=== PATIENT | male | born 1950 | race Caucasian/White ===

== ENCOUNTER 2019-09-24 16:37 | Inpatient (IN) | payer OTHER, SELFPAY ==
[2019-09-24] VITALS (9 sets, daily range): BP systolic 178–196; BP diastolic 70–85; PULSE 64–94; RESP 18–24; TEMP 36.6–37.2; O2SAT 97–100; BMI 45.0
--- NOTE | ~2019-09-24 | US_ITS ---
EXAMINATION: US venous doppler [facility] DATE: 09/25/2019 07:50 INDICATION: Lower limb edema. TECHNIQUE: Grayscale ultrasound images without and with compression and Doppler ultrasound images of the bilateral lower extremity veins were obtained. COMPARISON: Ultrasound 12/31/2017 FINDINGS: The visualized portions of right common femoral vein, profunda (deep) femoral vein, femoral vein, pop liteal vein, peroneal veins, posterior tibial veins, and greater saphenous vein outflow are patent. The visualized portions of left common femoral vein, profunda femoral vein, femoral vein, popliteal v ein, peroneal veins, posterior tibial veins, and greater saphenous vein outflow are patent. IMPRESSION: 1. No deep venous thrombosis. Reviewed, dictated and finalized at location A.
--- NOTE | ~2019-09-24 | XR_ITS ---
XR chest 1V portable 09/24/2019 17:05 Indication: Shortness of breath Procedure: AP portable chest Comparison: No prior studies for comparison. Findings: Cardiomegaly. Low lung volumes. Mild interstitial edema. No pleural effusion or pneumothora x. Elevated right diaphragm. There are degenerative changes left glenohumeral joint. Impression: 1: Cardiomegaly with mild interstitial edema. Reviewed, dictated and finalized at location A. Impression: 1: Cardiomegaly with mild interstitial edema.
--- NOTE | 2019-09-24 16:38 | ECG_ITS ---
Measurements Intervals [place] Rate: 66 P: 61 NM: 159 QRS: 4 QRSD: 117 T: 62 QT: 414 QTc: 434 Interpretive Statements SINUS RHYTHM LOW QRS VOLTAGE IN PRECORDIAL LEADS INTRAVENTRICULAR CONDUCTION DELAY BORDERLINE R WAVE PROGRESSION, ANTERIOR LEADS BASELINE ARTIFACT- V1 BORDERLINE ECG Electronically Signed On 09-25-2019 7:07:04 CDT by William Ross D.O.
--- NOTE | 2019-09-24 17:19 | ED.GENADULT ---
HPI - General Adult General Chief complaint: Shortness of Breath/Dyspnea Stated complaint: sob Time Seen by Provider: 09/24/19 16:49 Source: patient Mode of arrival: ambulatory Limitations: no limitations History of Present Illness HPI narrative: 69 m h/o severe copd reports for the last six months he has needed 3L o2 relatively continuously, prior to that wore only around the house has not had any medical f/u during that time for a variety of reasons, recently had been staying with family in [facility] h/o icthyosis and was coming to the ed today to be checked due to 2 weeks of increased pain and drainage that he has been trying to take care of by himself at home went to pcp office but they weren't there walking in from [employer] car w/o o2 he was sob but feels essentially like his recent baseline now Related Data Home Medications Medication Instructions Recorded Confirmed albuterol sulfate 90 mcg/actuation 1 inhalation INHALATION Q4H 06/23/19 aerosol inhaler fluticasone 250 mcg-salmeterol 50 1 inhalation INHALATION BID 06/23/19 mcg/dose blistr powdr for inhalation furosemide 20 mg tablet 20 mg PO QAM 06/23/19 hydrochlorothiazide 25 mg tablet 25 mg PO DAILY 06/23/19 metoprolol succinate 50 mg 50 mg PO BID 06/23/19 tablet,extended release 24 hr simvastatin 10 mg tablet 10 mg PO DAILY 06/23/19 Allergies Allergy/AdvReac Type Severity Reaction Status Date / Time No Known Allergies Allergy Verified 09/24/19 17:04 Review of Systems Constitutional: Constitutional: Denies chills, Denies fatigue, Denies fever(s) and Denies weakness Cardiovascular: Cardiovascular: Denies chest pain Respiratory: Respiratory: Denies chest congestion, Denies cough, Reports dyspnea and Denies wheezing Gastrointestinal: Gastrointestinal: Denies diarrhea and Denies vomiting Musculoskeletal: Comments: b edema, draining superficial sores/erosions lle Integumentary/Breasts: Skin/Breast: Reports erythema and Reports rash PMFSH Social History Social History Smoking status: Heavy tobacco smoker Alcohol intake: never Gender identity (if verbalized by the patient): Male Exam Const: General: no acute distress and alert Nutritional Appearance: obese Orientation/consciousness: patient oriented x3 Limitations: no limitations HENMT: Head: normocephalic and atraumatic Ears: external ears normal General nose exam: No nasal discharge present and Epistaxis present Face and sinus: face symmetric Mouth: Yes lip normal, Yes tongue normal and Yes moist mucous membranes Throat: other (No exudate, no erythema) Eyes: Conjunctivae: conjunctivae normal Sclera: sclerae normal EOM: EOMs intact bilaterally Neck: Neck: full ROM, no lymphadenopathy and supple Thyroid: thyroid normal Chest: Chest palpation & inspection: no tenderness Resp: Effort & Inspection: normal respiratory effort Auscultation: clear to auscultation bilaterally, no rales, no rhonchi, no wheezes, diminished lung sounds and other (breath sounds equal) Cardio: Rate: regular rate Rhythm: regular rhythm Heart sounds: no gallops and no murmurs GI: Inspection: non-distended GI Palp: No abdominal tenderness and Yes Soft to palpation Auscultation: other (bowel sounds present) Back/Spine/Pelvis: Back: no CVA tenderness Thoracic/Lumbar Spine: thoracic and lumbar spine normal to inspection Skin: General skin exam: normal color and no rashes or lesions noted Other: dry/icthyosis superficial ulceration/oozing above L ankle Neuro: General: patient oriented x3 (alert), moves all extremities and no focal motor deficits Cranial nerves: Yes facial symmetry Speech: normal speech Motor exam (neuro): Motor abnormalities not present Extrem: General: full ROM and edema Psych: Affect: normal affect Course Course Emergency Course: maint on low flows of 02 to avoid retention and recd neb, steroid
[2019-09-24 17:20] LABS: Basophils Absolute Auto 0.1 K/mm3 (0.0-0.1); Basophils Percent Auto 0.7 % (0.2-1.2); Eosinophils Absolute Auto 0.1 K/mm3 (0-0.3); Eosinophils Percent Auto 1.2 % (0-4.4); Hematocrit 38.2 % (42.0-52.0); Hemoglobin 11.6 g/dL (14.0-18.0); Immature Granulocyte Absolute 0.05 K/mm3 (0.00-0.031); Immature Granulocyte Percent A 0.6 % (0-0.5); Lymphocytes Absolute Auto 2.23 K/mm3 (0.9-3.2); Lymphocytes Percent Auto 25.1 % (18.3-44.2); Mean Corpuscular HGB Conc 30.4 g/dl (32-36); Mean Corpuscular Hemoglobin 28.3 pg (26-34); Mean Corpuscular Volume 93.2 fl (80-100); Mean Platelet Volume 10.2 fl (7.4-10.4); Monocytes Absolute Auto 0.8 K/mm3 (0.1-0.6); Monocytes Percent Auto 9.3 % (2.6-8.5); Neutrophils Absolute Auto 5.6 K/mm3 (1.3-6.7); Neutrophils Percent Auto 63.1 % (45.5-73.1); Platelet Count Result 162 k/mm3 (150-375); Red Cell Distribution Width 12.8 % (11.5-14.5); White Blood Count 8.9 K/mm3 (4.5-10.0)
[2019-09-24 17:34] LABS: Blood Urea Nitrogen 14 mg/dL (9-20); Calcium 8.7 mg/dL (8.4-10.2); Carbon Dioxide > 40 mmol/L (22-30); Chloride 92 mmol/L (98-107); Estimated CRCL calculation 107 ml/min; Estimated Glomerular Filt Rate > 60; Glucose 121 mg/dL (75-110); Potassium 3.6 mmol/L (3.4-5.0); Sodium 139 mmol/L (137-145)
[2019-09-24 17:38] LABS: Alveolar/Arterial O2 Gradient 35.3 mmHg; Base Excess ABG 11.7 mEq/l (+/-2.0); Fractional Inspired Oxygen 32 %; HCO3 ABG 40.3 mEq/l (22.0-26.0); Oxygen Content ABG 16.8 %vol (16.0-22.0); Oxygen Saturation ABG 97.3 % (95.0-100.0); Oxyhemoglobin 96.1 % THb (90.0-100.0); PO2 FiO2 Ratio Arterial Blood 3.28 %; Total Hemoglobin 12.3 g/dL (12.0-18.0); pH ABG 7.347 (7.350-7.450)
[2019-09-24 17:39] LABS: Device NASAL CANNULA; Modified Allen's Test Pass; PCO2 ABG 75.1 mmHg (35.0-45.0); Site Drawn LEFT RADIAL
[2019-09-24] MEDS: ceFAZolin 2 GM/D5W 50 ML 2 GM/50 ML BAG IVPB (19:01)
[2019-09-24] MEDS: IPRATROPIUM BR 0.02% INH SOLN 0.5 MG/2.5 ML VIAL INHALATION (19:26)
[2019-09-24] MEDS: ALBUTEROL SULFATE NEB 2.5 MG/0.5 ML INH 5 MG INHALATION (19:26)
--- NOTE | 2019-09-24 19:43 | PCRCNOTE ---
Window of time for administration has passed. See next scheduled administration.
--- NOTE | 2019-09-24 19:57 | ADMGEN ---
This patient, Chetan Lazaro, was admitted to Medical Room 250-01. Patient/family oriented to hospital policies and general routines including ID bracelet, bed and alarms, visiting hours, pain management, procedures, bathroom and other care routines, personal items, smoking policy, room service/diet, and visiting hours. Valuables list has been completed. Information on how to activate the Rapid Response Team has been discussed. Patient/Family are encouraged to report perceived risks to care and to ask questions if they do not understand what they are told or what they should do.
[2019-09-24 22:22] LABS: Alveolar/Arterial O2 Gradient 53.4 mmHg; Base Excess ABG 8.7 mEq/l (+/-2.0); Fractional Inspired Oxygen 32 %; HCO3 ABG 35.6 mEq/l (22.0-26.0); Oxygen Content ABG 15.2 %vol (16.0-22.0); Oxygen Saturation ABG 97.4 % (95.0-100.0); Oxyhemoglobin 96.2 % THb (90.0-100.0); PO2 ABG 102.7 mmHg (80.0-100.0); PO2 FiO2 Ratio Arterial Blood 3.21 %; Total Hemoglobin 11.1 g/dL (12.0-18.0)
[2019-09-24 22:23] LABS: PCO2 ABG 61.6 mmHg (35.0-45.0)
[2019-09-24 22:24] LABS: Device NASAL CANNULA; Modified Allen's Test Pass; Site Drawn LEFT RADIAL
[2019-09-24] MEDS: FAMOTIDINE 20 MG/2 ML VIAL IV PUSH (23:02)
[2019-09-25] VITALS (10 sets, daily range): BP systolic 162–190; BP diastolic 58–72; PULSE 59–81; RESP 18–20; TEMP 36.3–36.6; O2SAT 96–100
--- NOTE | 2019-09-25 | ECHO_ITS ---
Patient Info Name: Chetan Lazaro Age: 69 years : 1950 Gender: Male Ht: 69 in Wt: 305 lbs BSA: 2.67 m2 HR: 75 bpm BP: 179 / 72 mmHg Heart Rhythm: Sinus Rhythm Technical Quality: Poor Exam Date: 09/25/2019 11:19 AM Exam Location: [facility] Patient Status: Inpatient Admit Date: 09/24/2019 Staff Ordering Physician: Chelsea Ovalle NP [place] Technician: Pantera Waller RDCS Attending Provider: Batool Guy PA-C Referring Physician: Yamile JAMES; Exam Type: CA echo doppler color flow Study Info Indications R60.9 - Edema, unspecified Complete two-dimensional, color flow and Doppler transthoracic echocardiogram is performed. Reason for Poor Study: poor echocardiographic windows History/Risk Factors Edema; COPD, CAD w/ 1 stent. Summary 1. Technically suboptimal study due to poor sonographic images. Cannot assess for regional wall motion abnormality. 2. Left ventricular chamber dimension is normal. 3. Left ventricular systolic function is normal, estimated at 55-60%. 4. There is moderately increased left ventricular wall thickness. 5. The left ventricular diastolic function is abnormal. 6. E/e' 12 is mildly elevated. 7. Left atrial chamber dimension is mildly enlarged. 8. The aortic valve is not well visualized. 9. The mitral valve has not well visualized. Left Ventricle Technically suboptimal study due to poor sonographic images. Cannot assess for regional wall motion abnormality. E/e' 12 is mildly elevated. Left ventricular chamber dimension is normal. Left ventricular systolic function is normal, estimated at 55-60%. There is moderately increased left ventricular wall thickness. The left ventricular diastolic function is abnormal. Right Ventricle Right ventricular chamber dimension is not well visualized. Left Atria Left atrial chamber dimension is mildly enlarged. Right Atria Right atrial chamber dimension is not well visualized. Aortic Valve The aortic valve is not well visualized. There is no aortic valve stenosis. There is no aortic valve regurgitation. Pulmonic Valve The pulmonic valve is not well visualized. Mitral Valve The mitral valve has not well visualized. There is no mitral valve stenosis. There is no mitral valve regurgitation. Tricuspid Valve The tricuspid valve leaflets are not well visualized. There is no tricuspid valve regurgitation. Pericardium/Pleural There is no pericardial effusion. Inferior Vena Cava Normal inferior vena cava with >50% collapse upon inspiration consistent with normal right atrial pressure, 5 mmHg. Aorta The aortic root size at the sinus of Valsalva is not well visualized. Left Ventricular Outflow Tract Name Value Normal LVOT Doppler LVOT Peak Gradient 5 mmHg LVOT Mean Gradient 2 mmHg LVOT VTI 24 cm LVOT VTI/AV VTI Ratio 0.6 Mitral Valve Name Value Normal MV Doppler
[2019-09-25] MEDS: hydrALAZINE HCL 20 MG/ML VIAL 25 MG IV PUSH (00:14)
--- NOTE | 2019-09-25 00:35 | PM.IMHP ---
H&P: HPI History of Present Illness Chief complaint: Cellulitis/COPD Narrative: Chetan Lazaro is a 69 year old male who has a history of COPD. The patient typically wears oxygen p.r.n. and at night. The patient stated since the beginning of this year he has been wearing oxygen at 3 L per nasal cannula continuously. He denies having any congestive heart failure. Patient stated that he typically goes to the [facility] but has not been able to get back over there and months. He does not have a pulmonary doctor. He does uses inhalers at home. He cannot recall when he had his last echo. Patient has increased swelling to his lower extremities and has a history of ichthyosis. Patient has red peeling skin to bilateral lower extremities. He has serous drainage bilaterally. Patient was diagnosed by ED provider as cellulitis and started the patient on Ancef. Both legs are equally red and swollen. Patient complains of discomfort that is keeping him awake at night. He has not on any anticoagulation or dizzy a history of DVTs. Date of service is 09/25/2019 Review of Systems Review of Systems: All systems reviewed & are unremarkable except as noted in HPI and below Constitutional: Constitutional: Reports as per HPI and Reports no additional constitutional complaints Eyes: Eyes: Reports as per HPI and Reports no additional eye complaints ENT: Reports system reviewed and no additional complaints, except as documented and Reports Normal hearing present Cardiovascular: Cardiovascular: Reports no additional cardiovascular complaints Respiratory: Respiratory: Reports no additional respiratory complaints and Reports no additional respiratory complaints Gastrointestinal: Gastrointestinal: Reports as per HPI and Reports no additional gastrointestinal complaints Musculoskeletal: Musculoskeletal: Reports no additional musculoskeletal complaints Integumentary/Breasts: Skin/Breast: Reports system reviewed and no additional complaints, except as docu and Reports as per HPI Neurologic: Reports system reviewed and no additional complaints, except as documented, Reports as per HPI and Reports Normal hearing present Psychiatric: Psychiatric: Reports no additional psychiatric complaints and Reports as per HPI Endocrine: Endocrine: Reports no additional endocrine complaints Hematologic/Lymphatic: Hematologic/Lymphatic: Reports no additional hematologic/lymphatic complaints Allergic/Immunologic: Allergic/Immunologic: Reports no additional allergic/immunologic complaints [facility] Past Medical History Medical History (Updated 09/25/19 @ 00:51 by Chelsea Ovalle NP) BPH (benign prostatic hyperplasia) CAD (coronary artery disease) One cardiac stent Hyperlipidemia Ichthyosis Neuropathy Surgical History Surgical History (Updated 09/25/19 @ 00:51 by Chelsea Ovalle NP) H/O bilateral cataract extraction H/O heart artery stent X1 History of tonsillectomy Family History Family History (Updated 09/25/19 @ 00:53 by Chelsea Ovalle NP) Father Brain tumor Mother Dementia Sibling Measles Son Acute myocardial infarction Daughter Spina bifida Social History Social History (Updated 09/25/19 @ 00:55 by Chelsea Ovalle NP) Social History: The patient is and lives with his son most of the time. Patient had 3 children but his 1 son at the age of 21 of a DC in his daughter due to complications of spina bifida at the age of 24. The 1 remaining son is healthy and is the durable power estate planning attorney for healthcare. The patient is a full code. 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 Smoking status: Heavy tobacco smoker Alcohol intake: current Drinks per week: 1 Substance use: never Living arrangements: with family Gender identity (if verbalized by the patient): Male Spiritual care concerns: No Agree to blood products: Yes Meds Home Medications and Allergies Home Medications Medication
[2019-09-25] MEDS: ACETAMINOPHEN 325 MG TABLET 650 MG PO ×3 (03:08→18:33)
[2019-09-25 05:30] LABS: Basophils Percent Auto 0.2 % (0.2-1.2); Hematocrit 37.1 % (42.0-52.0); Hemoglobin 11.4 g/dL (14.0-18.0); Immature Granulocyte Absolute 0.05 K/mm3 (0.00-0.031); Immature Granulocyte Percent A 0.9 % (0-0.5); Lymphocytes Percent Auto 14.8 % (18.3-44.2); Mean Corpuscular HGB Conc 30.7 g/dl (32-36); Mean Corpuscular Hemoglobin 28.1 pg (26-34); Mean Corpuscular Volume 91.4 fl (80-100); Mean Platelet Volume 10.4 fl (7.4-10.4); Monocytes Absolute Auto 0.2 K/mm3 (0.1-0.6); Monocytes Percent Auto 2.8 % (2.6-8.5); Neutrophils Absolute Auto 4.4 K/mm3 (1.3-6.7); Neutrophils Percent Auto 81.3 % (45.5-73.1); Platelet Count Result 159 k/mm3 (150-375); Red Blood Count 4.06 M/mm3 (4.6-6.20); Red Cell Distribution Width 12.8 % (11.5-14.5); White Blood Count 5.4 K/mm3 (4.5-10.0)
--- NOTE | 2019-09-25 05:50 | PCRCNOTE ---
Window of time for administration has passed. See next scheduled administration.
[2019-09-25 05:51] LABS: Blood Urea Nitrogen 15 mg/dL (9-20); Calcium 8.5 mg/dL (8.4-10.2); Carbon Dioxide > 40 mmol/L (22-30); Chloride 93 mmol/L (98-107); Estimated CRCL calculation 133 ml/min; Estimated Glomerular Filt Rate > 60; Glucose 146 mg/dL (75-110); Potassium 4.2 mmol/L (3.4-5.0); Sodium 136 mmol/L (137-145)
[2019-09-25] MEDS: predniSONE 20 MG TABLET 60 MG PO (08:53)
[2019-09-25] MEDS: FAMOTIDINE 20 MG/2 ML VIAL IV PUSH ×2 (08:53→20:00)
[2019-09-25] MEDS: OLMESARTAN MEDOXOMIL 20 MG TABLET 40 MG PO (08:54)
[2019-09-25] MEDS: SIMVASTATIN 10 MG TABLET PO (08:54)
[2019-09-25] MEDS: METOPROLOL SUCCINATE EXT REL 50 MG TABCR PO ×2 (08:54→16:53)
[2019-09-25] MEDS: ALBUTEROL SULFATE (*SP) AEROSOL 1 PUFF INHALATION (09:16)
[2019-09-25] MEDS: SILVERGEL (ELTA) 45 ML 1 APPLIC TOPICAL (11:45)
[2019-09-25] MEDS: EUCERIN CREAM 120 GM JAR 1 APPLIC TOPICAL (11:45)
--- NOTE | 2019-09-25 14:47 | PM.IMPN ---
Progress Note: A&P Assessment and Plan (1) Lower extremity edema: Code(s): R60.0 - Localized edema Status: Chronic Assessment and Plan: Acute on chronic. He notes that his legs have been more swollen than normal over the last 2 weeks and he presented the the ER due to worsening pain in both legs. Discussed with wound RN. No infection suspected - ancef stopped. JACQUELINE legs below the knees are edematous, skin is dry and flaky with weeping and maceration. Poor compliance. Patient needs to be able to do his wound care at home and continue elevating his legs. Establish with podiatry. Venous dopplers show no DVT. IV Lasix 40 BID for now and anticipate discharge tomorrow. (2) COPD (chronic obstructive pulmonary disease): Qualifiers: COPD type: unspecified COPD Qualified Code(s): J44.9 - Chronic obstructive pulmonary disease, unspecified Code(s): J44.9 - Chronic obstructive pulmonary disease, unspecified Status: Chronic Assessment and Plan: Continue with inhalers and prednisone. No evidence of respiratory distress. Expiratory wheezing. Tolerating his home O2 requirement of 3L. (3) Hyperlipidemia: Qualifiers: Hyperlipidemia type: unspecified Qualified Code(s): E78.5 - Hyperlipidemia, unspecified Code(s): E78.5 - Hyperlipidemia, unspecified Status: Acute Assessment and Plan: Continue home statin therapy. 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 Continue wound care. (5) Chronic hypercapnic respiratory failure: Code(s): J96.12 - Chronic respiratory failure with hypercapnia Status: Acute Assessment and Plan: Chronic. Monitor for respiratory symptoms. Subjective Date/time seen: 09/25/19 1245 Interval history: Mr. Reddy is a 69yo M admitted for JACQUELINE lower extremity edema and pain. He notes his pain is a bit improved. He otherwise offers no complaints and denies chest pain, shortness of breath, or cough. He is tolerating oral intake without nausea or vomiting. Review of Systems Review of Systems: Narrative: Twelve systems were reviewed with pertinent positives and negatives as per HPI. Exam Narrative: Exam Narrative: General: Obese male sitting up in bedside chair in no acute distress. HEENT: Normocephalic, EOMI, oral mucosa moist. Cardiovascular: Rate and rhythm are regular. No notable murmur, rub, or gallop. Respiratory: Expiratory wheeze. Decreased breath sounds throughout. Tolerating his home requirement of 3L. Abdomen: Soft, protuberant, non-tender, non-distended, bowel sounds present. Extremities: Significant chronic skin and color change to bilateral lower extremities. Skin is dry and flaky. Toenails are thickened, yellow, and very overgrown. 2 to 3+ pedal edema up to knees. Neuro: No focal neurological deficits. Speech is clear. Objective Data Vital Signs Vital Signs: Last Vital Signs Temp 97.8 F 09/25/19 13:59 Pulse 80 09/25/19 16:53 Resp 18 09/25/19 13:59 BP 190/64 H 09/25/19 13:59 Pulse Ox 99 09/25/19 13:59 Intake/Output Intake/Output: Intake & Output 09/22/19 09/23/19 09/24/19 09/25/19 23:59 23:59 23:59 23:59 Intake Total 50 1020 Output Total 1175 Balance 50 -155 Meds/Results Medications: Active Medications Generic Name Dose Route Start Last Admin Trade Name Freq PRN Reason Stop Dose Admin Acetaminophen 650 mg 09/24/19 18:41 09/25/19 09:03 Tylenol Tablet PO 650 mg Q4H PRN Administration Mild Pain (1-3) or Fever Albuterol 1 puff 09/25/19 09:17 Proventil Hfa INHALATION Q4HRT PRN Shortness Of Odette
[2019-09-25] MEDS: FUROSEMIDE INJ 40 MG/4 ML VIAL IV PUSH (14:53)
[2019-09-26 05:38] LABS: Blood Urea Nitrogen 18 mg/dL (9-20); Calcium 8.6 mg/dL (8.4-10.2); Carbon Dioxide > 40 mmol/L (22-30); Chloride 91 mmol/L (98-107); Estimated CRCL calculation 102 ml/min; Estimated Glomerular Filt Rate > 60; Glucose 123 mg/dL (75-110); Potassium 4.5 mmol/L (3.4-5.0); Sodium 138 mmol/L (137-145)
[2019-09-26 06:00] VITALS: BP 148/75; PULSE 58; RESP 18; TEMP 36; O2SAT 99
[2019-09-26] MEDS: ACETAMINOPHEN 325 MG TABLET 650 MG PO (06:58)
[2019-09-26 08:10] VITALS: PULSE 51; RESP 20; O2SAT 98
[2019-09-26 09:08] VITALS: PULSE 69
[2019-09-26] MEDS: FAMOTIDINE 20 MG/2 ML VIAL IV PUSH (09:08)
[2019-09-26] MEDS: SIMVASTATIN 10 MG TABLET PO (09:08)
[2019-09-26] MEDS: FUROSEMIDE INJ 40 MG/4 ML VIAL IV PUSH (09:08)
[2019-09-26] MEDS: OLMESARTAN MEDOXOMIL 20 MG TABLET 40 MG PO (09:08)
[2019-09-26] MEDS: predniSONE 20 MG TABLET 60 MG PO (09:08)
[2019-09-26] MEDS: METOPROLOL SUCCINATE EXT REL 50 MG TABCR PO (09:08)
[2019-09-26] MEDS: SILVERGEL (ELTA) 45 ML 1 APPLIC TOPICAL (09:11)
[2019-09-26] MEDS: EUCERIN CREAM 120 GM JAR 1 APPLIC TOPICAL (09:11)
--- NOTE | 2019-09-26 09:51 | PM.DS ---
DS: Diagnosis Admitting Diagnosis Admitting Diagnosis: Lower extremity edema, bilaterally Discharge Diagnosis (1) Lower extremity edema: Code(s): R60.0 - Localized edema Status: Chronic Assessment and Plan: Date of Service 09/26/19 Mr. Lazaro is a 69yo M with history of COPD, chronic respiratory failure with hypoxia and hypercapnia requiring 3L home supplemental O2, hypertension and hyperlipidemia who presented to the ED for evaluation of increased pain and swelling of bilateral lower legs. 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 He presented with JACQUELINE lower extremity swelling, weeping, and maceration as well as very thickened, overgrown toenails that were digging into his skin on the plantar aspects of his toes. Wound care nurse was consulted and agreed that his condition was not consistent with infection, rather worsening of chronic changes. He was treated with 40mg IV Lasix x 2 doses and discharged with a low dose of oral Lasix. Prior to this, no diuretics were listed on his home medications. He is poorly compliant with wound care and does not like to keep his legs elevated as encouraged. Wound care and education on his wounds were provided. He notes that he is unable to bend down far enough to do his dressing changes daily, and he was advised to teach his son to help him do his wound care at home. The patient lives in [place], [place] but drives to this area for his care and sees Dr Bauman. He was educated on the importance of daily dressing changes, elevating his legs and using compression stockings. 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 He noted he was only taking his advair and albuterol as needed. We discussed using his advair daily as a maintenance inhaler and using albuterol as needed. He also noted he will take off his oxygen at home when he walks around, which makes him feel short of breath. He was instructed not to do that, and to keep his oxygen on at all times. He was discharged in stable condition 09/26/19 with instructions to repeat lab work in 1 week to check electrolytes having started Lasix, and short interval follow up with PCP. Recommend outpatient follow up with wound care and podiatry. Acute on chronic. He notes that his legs have been more swollen than normal over the last 2 weeks and he presented the the ER due to worsening pain in both legs. Discussed with wound RN. No infection suspected - ancef stopped. JACQUELINE legs below the knees are edematous, skin is dry and flaky with weeping and maceration. Poor compliance. Patient needs to be able to do his wound care at home and continue elevating his legs. Establish with podiatry. Venous dopplers show no DVT. IV Lasix 40 x2; discharged with oral Lasix 20mg daily. (2) COPD (chronic obstructive pulmonary disease): Qualifiers: COPD type: unspecified COPD Qualified Code(s): J44.9 - Chronic obstructive pulmonary disease, unspecified Code(s): J44.9 - Chronic obstructive pulmonary disease, unspecified Status: Chronic Assessment and Plan: Continue with inhalers and prednisone. No evidence of respiratory distress. Tolerating his home O2 requirement of 3L. (3) Hyperlipidemia: Qualifiers: Hyperlipidemia type: unspecified Qualified Code(s): E78.5 - Hyperlipidemia, unspecified Code(s): E78.5 - Hyperlipidemia, unspecified Status: Acute Assessment and Plan: Continue home statin therapy. 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 He describes his chronic skin changes are in part related to [place] from serv
--- NOTE | 2019-10-02 14:52 | PC.NURSE ---
Blood cx are negative.
== END 2019-09-26 13:09 | disposition home or self-care (01) | DRG 948 ==
LOC: ANHED 19:07 → ANH2MED 19:16
PROVIDERS: Nurse Practitioner; Admitting Provider Hospitalist; Emergency Provider Emergency Medicine; Visit Provider Physician Assistant
DX: R60.0 Localized edema (principal); J96.11 Chronic respiratory failure with hypoxia; J96.12 Chronic respiratory failure with hypercapnia; J44.9 Chronic obstructive pulmonary disease, unspecified; E78.5 Hyperlipidemia, unspecified; N40.0 Benign prostatic hyperplasia without lower urinary tract symptoms; I25.10 Atherosclerotic heart disease of native coronary artery without angina pectoris; G62.9 Polyneuropathy, unspecified; F17.210 Nicotine dependence, cigarettes, uncomplicated; Z98.42 Cataract extraction status, left eye; Z98.41 Cataract extraction status, right eye; Z95.5 Presence of coronary angioplasty implant and graft; Z99.81 Dependence on supplemental oxygen
CPT/HCPCS: 36415; 36600; 71045; 80048; 82805; 85025; 86140; 87040; 93005; 93306; 93970; 94640; 96365; 96375; 99285; A9270; J0360; J0690; J1100; J1940; J7512

== ENCOUNTER 2019-11-13 12:41 | Observation (INO) | payer OTHER, SELFPAY ==
[2019-11-13] VITALS (9 sets, daily range): BP systolic 166–186; BP diastolic 66–78; PULSE 58–73; RESP 17–22; TEMP 36–37; O2SAT 94–98
--- NOTE | ~2019-11-13 | XR_ITS ---
EXAMINATION: XR chest 2V DATE: 11/13/2019 14:12 INDICATION: Shortness of breath. TECHNIQUE: Frontal and lateral views of the chest were obtained. COMPARISON: Chest single view 09/20/2019, chest CT 01/01/2018 FINDINGS: There is chronic elevation of right hemidiaphragm. There is mild atelectasis at the lung ba ses. No pleural effusion or pneumothorax. The heart size is normal. IMPRESSION: 1. Chronic elevation of right hemidiaphragm. 2. Mild atelectasis at the lung bases. Reviewed, dictated and finalized at location A.
--- NOTE | 2019-11-13 13:20 | ED.SOB ---
HPI - SOB/Dyspnea General Chief Complaint: Shortness of Breath/Dyspnea Stated Complaint: SOB Time Seen by Provider: 11/13/19 13:09 History of Present Illness HPI Narrative: Chronic SOB, worse over the past 3 days. On 3 liters of O2 at baseline. Now barely able to do minimal activities even with O2 in place. Drove to the hospital today for outpatient testing and by the time he reached the doors he was too SOB and came to the ED. No Fever, cough, chest pain. Related Data Home Medications Medication Instructions Recorded Confirmed albuterol sulfate 90 mcg/actuation 1 inhalation INHALATION Q4H 06/23/19 11/13/19 aerosol inhaler Adult Low Dose Aspirin 81 mg PO DAILY 11/13/19 11/13/19 olmesartan 40 mg PO DAILY 11/13/19 11/13/19 simvastatin 10 mg PO DAILY 11/13/19 11/13/19 Allergies Allergy/AdvReac Type Severity Reaction Status Date / Time No Known Allergies Allergy Verified 11/13/19 17:32 Review of Systems Review of Systems: All systems reviewed & are unremarkable except as noted in HPI and below Constitutional: Constitutional: Denies chills and Denies fever(s) Cardiovascular: Cardiovascular: Denies chest pain Respiratory: Respiratory: Denies cough and Reports dyspnea Neurologic: Denies weakness [facility] Past Medical History Medical History Agent orange exposure Benign prostatic hyperplasia Chronic obstructive pulmonary disease Coronary artery disease With history of stent x1. Normal stress test January 2017 Diastolic CHF Grade 2 pseudonormal diastolic dysfunction noted on echocardiogram from January 2017 but most recent echocardiogram for September 2019 also a difficult study demonstrated normal ejection fraction with no evidence of diastolic dysfunction Essential hypertension Hyperlipidemia Ichthyosis Mild obstructive sleep apnea Patient does not use CPAP. Peripheral neuropathy Mainly in the toes bilaterally. Surgical History Surgical History History of bilateral cataract extraction History of heart artery stent History of tonsillectomy Family History Family History Father Brain tumor Mother Dementia Sibling Measles Son Acute myocardial infarction Daughter Spina bifida in her 20s Social History Social History Social History: Patient had 3 children but his 1 son at the age of 19 of a [place] in his daughter due to complications of spina bifida at the age of 24. The 1 remaining son is healthy and is the durable power attorney at law for healthcare. Code status: Full code. Primary care physician: Dr. Luis M Bauman Smoking packs per day: 1 Smoking cigarettes per day: 20.0 Years smoked: 50 Smoking pack-years: 50.00 Smoking status: Former smoker Additional smoking assessment comments: He quit smoking in 2018. Alcohol intake: former Drinks per week: 1 Alcohol use details: He reports that he used to drink in moderation with periods of heavier drinking on and off until his 40s. His alcohol consumption gradually decreased and now he rarely drinks alcohol and only in small amounts. Substance use: never Substance use type: does not use Living arrangements: with family Additional living arrangements comments: He has been since 2018. He is in the process of moving to [place] to stay with his only living son all the time. He still owns his own home in [place]. She uses a cane for ambulation from time to time. 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 Gender identity (if verbalized by the patient): Male Spiritual care concerns: No Agree to blood products: Yes Exam Const: General: no acute distress, alert and ill appea
--- NOTE | 2019-11-13 13:41 | ECG_ITS ---
Measurements Intervals Ward Rate: 62 P: 62 OR: 164 QRS: -11 QRSD: 91 T: 60 QT: 395 QTc: 402 Interpretive Statements SINUS RHYTHM BORDERLINE R WAVE PROGRESSION, ANTERIOR LEADS BASELINE ARTIFACT- I, II, III, AVR, AVL, AVF, V1-V3 BORDERLINE ECG Electronically Signed On 11-13-2019 14:53:41 CDT by William Ross D.O.
[2019-11-13 14:35] LABS: Basophils Absolute Auto 0.1 K/mm3 (0.0-0.1); Basophils Percent Auto 0.8 % (0.2-1.2); Eosinophils Absolute Auto 0.1 K/mm3 (0-0.3); Eosinophils Percent Auto 1.3 % (0-4.4); Hematocrit 37.6 % (42.0-52.0); Hemoglobin 11.4 g/dL (14.0-18.0); Immature Granulocyte Absolute 0.02 K/mm3 (0.00-0.031); Immature Granulocyte Percent A 0.3 % (0-0.5); Lymphocytes Absolute Auto 1.55 K/mm3 (0.9-3.2); Lymphocytes Percent Auto 19.5 % (18.3-44.2); Mean Corpuscular HGB Conc 30.3 g/dl (32-36); Mean Corpuscular Hemoglobin 28.6 pg (26-34); Mean Corpuscular Volume 94.2 fl (80-100); Mean Platelet Volume 9.8 fl (7.4-10.4); Monocytes Absolute Auto 0.7 K/mm3 (0.1-0.6); Monocytes Percent Auto 8.5 % (2.6-8.5); Neutrophils Absolute Auto 5.6 K/mm3 (1.3-6.7); Neutrophils Percent Auto 69.6 % (45.5-73.1); Platelet Count Result 150 k/mm3 (150-375); Red Blood Count 3.99 M/mm3 (4.6-6.20); Red Cell Distribution Width 12.7 % (11.5-14.5)
[2019-11-13 14:43] LABS: INR 1.1; Prothrombin Time 14.2 Seconds (11.1-14.7)
[2019-11-13 14:44] LABS: Partial Thromboplastin Time 28.7 SECONDS (22.3-36.8)
[2019-11-13 14:54] LABS: Blood Urea Nitrogen 12 mg/dL (9-20); Calcium 8.6 mg/dL (8.4-10.2); Carbon Dioxide > 40 mmol/L (22-30); Chloride 91 mmol/L (98-107); Estimated CRCL calculation 121 ml/min; Estimated Glomerular Filt Rate > 60; Glucose 119 mg/dL (75-110); Potassium 4.1 mmol/L (3.4-5.0); Sodium 139 mmol/L (137-145)
[2019-11-13 14:58] LABS: NT Pro B Type Natriuretic Pept 641 PG/ML (5-100); Troponin I < 0.012 ng/mL (0.000-0.034)
[2019-11-13] MEDS: FUROSEMIDE INJ 40 MG/4 ML VIAL IV PUSH (15:49)
--- NOTE | 2019-11-13 17:16 | ADMGEN ---
This patient, Chetan Lazaro, was admitted to Medical Room 253-01. Patient/family oriented to hospital policies and general routines including ID bracelet, bed and alarms, visiting hours, pain management, procedures, bathroom and other care routines, personal items, smoking policy, room service/diet, and visiting hours. Valuables list has been completed. Information on how to activate the Rapid Response Team has been discussed. Patient/Family are encouraged to report perceived risks to care and to ask questions if they do not understand what they are told or what they should do.
--- NOTE | 2019-11-13 18:52 | PM.IMHP ---
H&P: HPI History of Present Illness Chief complaint: CHF/exacerbation [facility] Past Medical History Medical History (Updated 11/13/19 @ 18:56 by Deanna Amezquita PA-C) Agent orange exposure Benign prostatic hyperplasia Chronic obstructive pulmonary disease Coronary artery disease With history of stent x1. Essential hypertension Hyperlipidemia Ichthyosis Mild obstructive sleep apnea Patient does not use CPAP. Peripheral neuropathy Mainly in the toes bilaterally. Surgical History Surgical History (Updated 11/13/19 @ 18:56 by Deanna Amezquita PA-C) History of bilateral cataract extraction History of heart artery stent History of tonsillectomy Family History Family History Father Brain tumor Mother Dementia Sibling Measles Son Acute myocardial infarction Daughter Spina bifida Social History Social History Social History: The patient is and lives with his son most of the time. Patient had 3 children but his 1 son at the age of 21 of a [place] in his daughter due to complications of spina bifida at the age of 24. The 1 remaining son is healthy and is the durable power avionics integration engineer for healthcare. The patient is a full code. 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 Smoking packs per day: 1 Smoking cigarettes per day: 20.0 Years smoked: 48 Smoking pack-years: 48.00 Smoking status: Former smoker Alcohol intake: current Drinks per week: 1 Substance use: never Substance use type: does not use Gender identity (if verbalized by the patient): Male Spiritual care concerns: No Agree to blood products: Yes Meds Home Medications and Allergies Home Medications Medication Instructions Recorded Confirmed Type albuterol sulfate 90 mcg/actuation 1 inhalation INHALATION Q4H 06/23/19 11/13/19 History aerosol inhaler fluticasone propion-salmeterol 1 inhalation INHALATION BID #60 09/26/19 11/13/19 Rx [Advair Diskus] each furosemide 20 mg PO DAILY 30 Days #30 tablet 09/26/19 11/13/19 Rx lanolin kpjtsgb-cr-o.pet-ceres 1 applic TOPICAL QAM #113 gm 09/26/19 11/13/19 Rx [Minerin Creme] silver [Silver-Sept] 1 applic TOPICAL DAILY #45 gm 09/26/19 11/13/19 Rx metoprolol succinate 50 mg 50 mg PO BID #180 tablet 09/28/19 11/13/19 Rx tablet,extended release 24 hr Adult Low Dose Aspirin 81 mg PO DAILY 11/13/19 11/13/19 History olmesartan 40 mg PO DAILY 11/13/19 11/13/19 History simvastatin 10 mg PO DAILY 11/13/19 11/13/19 History Allergies Allergy/AdvReac Type Severity Reaction Status Date / Time No Known Allergies Allergy Verified 11/13/19 17:32 Vital Signs Vital Signs - 24 hr 11/13/19 13:25 11/13/19 15:10 11/13/19 16:47 Temperature 98.6 F Pulse Rate 58 L 73 61 Respiratory Rate 17 21 H 19 Blood Pressure 186/73 H 182/78 H Pulse Oximetry 96 96 96 11/13/19 17:57 Temperature 97.1 F L Pulse Rate 58 L Respiratory Rate 22 H Blood Pressure 186/73 H Pulse Oximetry 98 H&P: Results Labs Labs: Short CBC 11/13/19 Range/Units 14:22 WBC 8.0 (4.5-10.0) K/mm3 Hgb 11.4 L (14.0-18.0) g/dL Hct 37.6 L (42.0-52.0) % Plt Count 150 (150-375) k/mm3 BMP 11/13/19 14:22 Sodium 139 Potassium 4.1 Chloride 91 L Carbon Dioxide > 40 H BUN 12 D Creatinine 0.70 Glucose 119 H Calcium 8.6 Cardiac Enzymes 11/13/19 Range/Units 14:22 Troponin I < 0.012 (0.000-0.034) ng/mL
[2019-11-13 19:18] LABS: Alveolar/Arterial O2 Gradient 35.2 mmHg; Base Excess ABG 17.8 mEq/l (+/-2.0); Carboxyhemoglobin 0.3 % THb (0-2.0); Methemoglobin ABG 0.3 %THb (0-1.5); Oxygen Content ABG 16.2 %vol (16.0-22.0); Oxygen Saturation ABG 94.9 % (95.0-100.0); Oxyhemoglobin 94.2 % THb (90.0-100.0); PO2 ABG 76.9 mmHg (80.0-100.0); PO2 FiO2 Ratio Arterial Blood 2.75 %; Reduced Hemoglobin 5.2 %THb (0-5.0); Total Hemoglobin 12.2 g/dL (12.0-18.0)
[2019-11-13 19:23] LABS: PCO2 ABG 74.2 mmHg (35.0-45.0)
[2019-11-13 19:24] LABS: Device NASAL CANNULA; Fractional Inspired Oxygen 28 %; Site Drawn RIGHT BRACHIAL
[2019-11-13] MEDS: IPRATROPIUM BR 0.02% INH SOLN 0.5 MG/2.5 ML VIAL INHALATION (20:02)
[2019-11-13] MEDS: ALBUTEROL SULFATE NEB 2.5 MG/0.5 ML INH 5 MG INHALATION (20:03)
[2019-11-14] VITALS (20 sets, daily range): BP systolic 155–165; BP diastolic 49–97; PULSE 55–106; RESP 18–22; TEMP 36–36.9; O2SAT 96–100
--- NOTE | 2019-11-14 00:21 | PM.IMHP ---
H&P: HPI History of Present Illness Chief complaint: Sudden increased difficulty breathing Narrative: Date and time of patient contact: 11/13/2019 at 11:20 p.m. Chetan Lazaro is a 69 year old male with a past medical history of chronic lower extremity edema, ichthyosis, coronary artery disease, and COPD on chronic oxygen therapy who presented to the ER after becoming acutely short of breath while driving/then ambulating to go to his wound care appointment. The patient reports that he has become more short of breath over the last couple of months. His symptoms are worse when he tries to lay back to go to sleep. He usually sleeps in a recliner or in a semi upright position. Despite sleeping in this position he has become even more short of breath over the last 3 days. He blames part of this on the weather and part of it on being confined to the house given the current COVID-19 pandemic. He thinks that he is getting weaker in this is causing more shortness of breath. He denies any cough or congestion. He does have chronic lower extremity swelling but he does not think it is any change from baseline. He reports that the chronic wounds on his left leg err healing well. He has not noticed any unusual drainage or increased erythema. He has not been having any fevers or chills. He denies any significant cough or sputum production. He has not had any recent ill contacts. He is in the process of moving in to his son's house in [facility] (about an hour away). He reported that he had drove from his son's house to [facility] today to come for his appointment. He reports that he had his [address] and was using an oxygen tank. He is sure that his oxygen tank did not run out of oxygen. He reports that he gets more oxygen when he uses the oxygen concentrator at home that he does with the tank. He denies any chest pain, indigestion, nausea, diaphoresis or palpitations. He reports that when he had his [place] he had more symptoms of indigestion than anything else. He reports that today symptoms were not like his [place] symptoms. He reports that ambulating from his car to the front of the hospital exacerbated his symptoms today. He reports that he is on 3 L of oxygen all the time especially if he is exerting himself. If he is sitting still he will sometimes go without his oxygen. He reports that he had a sleep study greater than 10 years ago and he did not require a CPAP at that time. He denies having a sleep study recently. He has gained significant weight in the last 10 years. He reports more disrupted sleep recently but relates this to the current COVID-19 pandemic and the stress of moving. He still planned stick [place] [facility] to see his physicians. 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 Review of Systems Review of Systems: Narrative: 12 systems were reviewed with pertinent positives and negatives per HPI. Except as documented in the HPI, all other systems were reviewed and are negative. [facility] Past Medical History Medical History (Updated 11/14/19 @ 01:33 by Phuong Horton DO) Agent orange exposure Benign prostatic hyperplasia Chronic obstructive pulmonary disease Coronary artery disease With history of stent x1. Normal stress test January 2017 Diastolic CHF Grade 2 pseudonormal diastolic dysfunction noted on echocardiogram from January 2017 but most recent echocardiogram for September 2019 also a difficult study demonstrated normal ejection fraction with no evidence of diastolic dysfunction Essential hypertension Hyperlipidemia Ichthyosis Mild obstructive sleep apnea Patient does not use CPAP. Peripheral neuropathy Mainly in the toes bilaterally. Surgical History Surgical History History of bilateral cataract extraction History of heart artery stent History of tonsillectomy Family History Family History (Updated 11/14/19 @ 01:01 by Marly
[2019-11-14] MEDS: methylPREDNISolone SOD SUCC 125 MG VIAL 80 MG IV PUSH (01:20)
[2019-11-14] MEDS: IPRATROPIUM BR 0.02% INH SOLN 0.5 MG/2.5 ML VIAL INHALATION ×4 (02:27→20:14)
[2019-11-14] MEDS: ALBUTEROL SULFATE NEB 2.5 MG/0.5 ML INH 5 MG INHALATION ×4 (02:27→20:14)
[2019-11-14] MEDS: ENOXAPARIN 40 MG/0.4 ML SYRINGE SUB-Q (09:00)
[2019-11-14] MEDS: EUCERIN CREAM 120 GM JAR 1 APPLIC TOPICAL (09:00)
[2019-11-14] MEDS: OLMESARTAN MEDOXOMIL 20 MG TABLET 40 MG PO (09:00)
[2019-11-14] MEDS: ASPIRIN 81 MG ENTERIC TABLET PO (09:00)
[2019-11-14] MEDS: FUROSEMIDE 40 MG TABLET PO (09:00)
[2019-11-14] MEDS: METOPROLOL SUCCINATE EXT REL 50 MG TABCR PO ×2 (09:01→20:35)
[2019-11-14] MEDS: SILVERGEL (ELTA) 45 ML 1 APPLIC TOPICAL (09:01)
[2019-11-14] MEDS: SIMVASTATIN 10 MG TABLET PO (09:01)
--- NOTE | 2019-11-14 13:19 | PM.IMPN ---
Progress Note: A&P Assessment and Plan (1) CHF exacerbation: Qualifiers: Heart failure type: diastolic Qualified Code(s): I50.33 - Acute on chronic diastolic (congestive) heart failure Code(s): I50.9 - Heart failure, unspecified Status: Acute Assessment and Plan: Patient is edematous on exam. His BNP is mildly elevated at 641. CXR did not reveal cardiomegaly. He had a recent echo in August 2019 which revealed normal EF at 55-60% and abnormal diastolic function. His symptoms are most likely multifactorial with diastolic dysfunction contributing. He was given 40 mg IV Lasix initially in ED. Continue 40 mg p.o. Lasix Continue home metoprolol and olmesartan Continue heart healthy diet and weigh patient daily (2) COPD exacerbation: Code(s): J44.1 - Chronic obstructive pulmonary disease with (acute) exacerbation Status: Acute Assessment and Plan: He is chronically on 3 L of oxygen at home and he is maintaining adequate oxygenation on his typical 3 L. He endorses MUNOZ only if he is not wearing his oxygen. ABG revealed elevated pCO2 consistent with prior readings and very mildly decreased PO2. On BMP, his CO2 levels were elevated consistent with prior levels, related to CO2 retention from COPD. He was given 1 time dose of IV Solu-Medrol today. Will plan to transition to oral prednisone tomorrow if he continues to have improvement in shortness of breath. Continue scheduled albuterol, ipratropium, and Advair Continue supplemental O2 with goal saturation 92% or above Given his lack of cough, sputum production, or any other symptoms suggesting respiratory infection, I do not feel that antibiotics are pertinent at this time. (3) Chronic hypercapnic respiratory failure: Code(s): J96.12 - Chronic respiratory failure with hypercapnia Status: Acute Assessment and Plan: ABG revealed elevated pCO2 consistent with prior readings. pH has been well compensated. Continue supplemental oxygen to maintain oxygen saturation greater than 92% Apnea link has been ordered and will be be evaluated. He will benefit from a formal sleep study as an outpatient (4) Essential hypertension: Code(s): I10 - Essential (primary) hypertension Status: Acute Assessment and Plan: Blood pressures were reviewed and are elevated. Per review of prior visits, it appears that blood pressures have been poorly controlled. Elevated readings may additionally be related to fluid overload and he may display improvement with diuresis. Continue Lasix, metoprolol, and Olmesartan Continue to monitor blood pressure closely. Consider additional agent or titration of medications to achieve target as needed Subjective Date/time seen: 11/14/19 13:19 Interval history: Date of service: 11/14/2019 He reports he is feeling well today. He continues to endorse shortness of breath only when he takes off his oxygen nasal cannula. Initially he was getting up and walking to the bathroom without his oxygen on which made him feel short of breath, but he is now wearing his oxygen while he is ambulating and reports he is feeling better. He denies orthopnea. He denies cough. He denies chest pain or palpitations. He believes that his legs and abdomen are more swollen than normal and also believes that his hands have become somewhat swollen. He is urinating frequently, however he denies dysuria or hematuria. He had a regular formed bowel movement this morning. His appetite is good. Review of Systems Review of Systems: Narrative: A 12 point review of systems was reviewed with pertinent positives and negatives as per HPI. Exam Narrative: Exam Narrative: Mr. Reddy is examined alone today. He is an obese, chronically ill-appearing 69-year-old male who is sitting up at the bedside. He appears comfortable and is in no acute respiratory distress. HR 77, BP 159/97, R 22, T 97.3?, 96% on 3
[2019-11-15] VITALS (20 sets, daily range): BP systolic 145–164; BP diastolic 50–66; PULSE 44–73; RESP 16–20; TEMP 36.4–36.9; O2SAT 99–100
[2019-11-15] MEDS: ALBUTEROL SULFATE NEB 2.5 MG/0.5 ML INH 5 MG INHALATION ×3 (08:03→19:52)
[2019-11-15] MEDS: IPRATROPIUM BR 0.02% INH SOLN 0.5 MG/2.5 ML VIAL INHALATION ×3 (08:04→19:52)
[2019-11-15 08:17] LABS: Basophils Absolute Auto 0.1 K/mm3 (0.0-0.1); Basophils Percent Auto 0.5 % (0.2-1.2); Eosinophils Absolute Auto 0.1 K/mm3 (0-0.3); Eosinophils Percent Auto 0.6 % (0-4.4); Hematocrit 36.3 % (42.0-52.0); Hemoglobin 11.1 g/dL (14.0-18.0); Immature Granulocyte Absolute 0.02 K/mm3 (0.00-0.031); Immature Granulocyte Percent A 0.2 % (0-0.5); Lymphocytes Absolute Auto 2.77 K/mm3 (0.9-3.2); Lymphocytes Percent Auto 28.2 % (18.3-44.2); Mean Corpuscular HGB Conc 30.6 g/dl (32-36); Mean Corpuscular Hemoglobin 28.5 pg (26-34); Mean Corpuscular Volume 93.1 fl (80-100); Mean Platelet Volume 9.9 fl (7.4-10.4); Monocytes Absolute Auto 0.9 K/mm3 (0.1-0.6); Monocytes Percent Auto 9.1 % (2.6-8.5); Neutrophils Percent Auto 61.4 % (45.5-73.1); Platelet Count Result 184 k/mm3 (150-375); Red Cell Distribution Width 13.2 % (11.5-14.5); White Blood Count 9.8 K/mm3 (4.5-10.0)
[2019-11-15 08:39] LABS: Alanine Aminotransferase 15 U/L (4-50); Albumin Level 3.7 g/dL (3.5-5.1); Alkaline Phosphatase 108 U/L (38-126); Aspartate Amino Transferase 29 U/L (17-59); Bilirubin,Total 0.7 mg/dL (0.2-1.3); Blood Urea Nitrogen 15 mg/dL (9-20); Calcium 8.6 mg/dL (8.4-10.2); Carbon Dioxide > 40 mmol/L (22-30); Chloride 85 mmol/L (98-107); Estimated CRCL calculation 123 ml/min; Estimated Glomerular Filt Rate > 60; Glucose 106 mg/dL (75-110); Potassium 3.8 mmol/L (3.4-5.0); Sodium 137 mmol/L (137-145)
[2019-11-15] MEDS: METOPROLOL SUCCINATE EXT REL 50 MG TABCR PO ×2 (09:25→20:43)
[2019-11-15] MEDS: ASPIRIN 81 MG ENTERIC TABLET PO (09:25)
[2019-11-15] MEDS: SIMVASTATIN 10 MG TABLET PO (09:26)
[2019-11-15] MEDS: ENOXAPARIN 40 MG/0.4 ML SYRINGE SUB-Q (09:27)
[2019-11-15] MEDS: FUROSEMIDE 40 MG TABLET PO (09:27)
[2019-11-15] MEDS: predniSONE 20 MG TABLET 40 MG PO (09:27)
[2019-11-15] MEDS: SILVERGEL (ELTA) 45 ML 1 APPLIC TOPICAL (09:30)
[2019-11-15] MEDS: OLMESARTAN MEDOXOMIL 20 MG TABLET 40 MG PO (09:30)
[2019-11-15] MEDS: EUCERIN CREAM 120 GM JAR 1 APPLIC TOPICAL (09:31)
--- NOTE | 2019-11-15 15:48 | PM.IMPN ---
Progress Note: A&P Assessment and Plan (1) CHF exacerbation: Qualifiers: Heart failure type: diastolic Qualified Code(s): I50.33 - Acute on chronic diastolic (congestive) heart failure Code(s): I50.9 - Heart failure, unspecified Status: Acute Assessment and Plan: Patient is edematous on exam. His BNP is mildly elevated at 641. CXR did not reveal cardiomegaly. He had a recent echo in August 2019 which revealed normal EF at 55-60% and abnormal diastolic function. His symptoms are most likely multifactorial with diastolic dysfunction contributing. Will administer IV Lasix 40 mg and transition to PO tomorrow for hopeful discharge. Continue home metoprolol and olmesartan Continue heart healthy diet and weigh patient daily (2) COPD exacerbation: Code(s): J44.1 - Chronic obstructive pulmonary disease with (acute) exacerbation Status: Acute Assessment and Plan: He is chronically on 3 L of oxygen at home and he is maintaining adequate oxygenation on his typical 3 L. ABG revealed elevated pCO2 consistent with prior readings and very mildly decreased PO2. On BMP, his CO2 levels were elevated consistent with prior levels, related to CO2 retention from COPD. Begin PO prednisone. He was given a 1x dose of IV solumedrol on 11/14/19. Continue scheduled albuterol, ipratropium, and Advair Continue supplemental O2 with goal saturation 92% or above Given his lack of cough, sputum production, or symptoms suggesting respiratory infection, I do not feel that antibiotics are pertinent at this time. (3) Chronic hypercapnic respiratory failure: Code(s): J96.12 - Chronic respiratory failure with hypercapnia Status: Acute Assessment and Plan: ABG revealed elevated pCO2 consistent with prior readings. pH has been well compensated. Continue supplemental oxygen to maintain oxygen saturation greater than 92% Apnea link was completed on 11/15/19. He was in the normal range at low risk for pathologic breathing disorder. He would still benefit from a formal sleep study as an outpatient (4) Essential hypertension: Code(s): I10 - Essential (primary) hypertension Status: Acute Assessment and Plan: Blood pressures were reviewed and are elevated. Per review of prior visits, it appears that blood pressures have been poorly controlled. Elevated readings may additionally be related to fluid overload and he may display improvement with diuresis. Continue Lasix, metoprolol, and Olmesartan Continue to monitor blood pressure closely. Subjective Date/time seen: 11/15/19 15:48 Interval history: Date of service: 11/15/2019 Mr. Reddy reports he is feeling well today. He is breathing much better today. He still endorses MUNOZ. He denies orthopnea, chest pain, or palpitations. He believes that his lower extremity edema is improving mildy. He has been urinating frequently. He denies dysuria or hematuria. He is eating well. He slept well last night. Review of Systems Review of Systems: Narrative: A 12 point review of systems was reviewed with pertinent positives and negatives as per HPI. Exam Narrative: Exam Narrative: Mr. Reddy is examined alone today. He is an obese, chronically ill-appearing 69-year-old male who is sitting up at the bedside. He appears comfortable and is in no acute respiratory distress. HR 53, BP 164/58, R 20, T 97.5?, 100% on 3 L Neuro: awake, alert and oriented x4, speech clear, no focal neuro deficits noted HEENMT: normocephalic, atraumatic, EOMI, sclerae anicteric, moist oral mucosa Neck: supple, no lymphadenopathy, large circumference Respiratory: Lungs are clear to auscultation, mildly diminished on right lung base, no crackles or wheezes, normal respiratory effort without accessory muscle use, no conversational dyspnea Cardio: regular rate, regular rhythm, normal S1 and S2 Abdomen: normal to inspection, distended, normoac
[2019-11-15] MEDS: FUROSEMIDE INJ 40 MG/4 ML VIAL IV PUSH (16:40)
[2019-11-16] VITALS (11 sets, daily range): BP systolic 122–141; BP diastolic 52–56; PULSE 59–92; RESP 16–20; TEMP 36.5–36.7; O2SAT 93–100
[2019-11-16] MEDS: ALBUTEROL SULFATE NEB 2.5 MG/0.5 ML INH 5 MG INHALATION ×2 (02:02→09:21)
[2019-11-16] MEDS: IPRATROPIUM BR 0.02% INH SOLN 0.5 MG/2.5 ML VIAL INHALATION ×2 (02:03→09:21)
[2019-11-16 06:05] LABS: Basophils Percent Auto 0.4 % (0.2-1.2); Eosinophils Absolute Auto 0.1 K/mm3 (0-0.3); Eosinophils Percent Auto 0.5 % (0-4.4); Hematocrit 37.2 % (42.0-52.0); Hemoglobin 11.3 g/dL (14.0-18.0); Immature Granulocyte Absolute 0.02 K/mm3 (0.00-0.031); Immature Granulocyte Percent A 0.2 % (0-0.5); Lymphocytes Absolute Auto 2.84 K/mm3 (0.9-3.2); Lymphocytes Percent Auto 29.2 % (18.3-44.2); Mean Corpuscular HGB Conc 30.4 g/dl (32-36); Mean Corpuscular Hemoglobin 28.3 pg (26-34); Monocytes Percent Auto 10.7 % (2.6-8.5); Neutrophils Absolute Auto 5.7 K/mm3 (1.3-6.7); Platelet Count Result 195 k/mm3 (150-375); Red Cell Distribution Width 13.2 % (11.5-14.5); White Blood Count 9.7 K/mm3 (4.5-10.0)
[2019-11-16 06:33] LABS: Alanine Aminotransferase 16 U/L (4-50); Albumin Level 3.8 g/dL (3.5-5.1); Alkaline Phosphatase 99 U/L (38-126); Aspartate Amino Transferase 29 U/L (17-59); Bilirubin,Total 0.5 mg/dL (0.2-1.3); Blood Urea Nitrogen 20 mg/dL (9-20); Calcium 8.3 mg/dL (8.4-10.2); Carbon Dioxide > 40 mmol/L (22-30); Chloride 86 mmol/L (98-107); Estimated CRCL calculation 106 ml/min; Estimated Glomerular Filt Rate > 60; Glucose 108 mg/dL (75-110); Potassium 3.5 mmol/L (3.4-5.0); Sodium 138 mmol/L (137-145)
[2019-11-16] MEDS: ASPIRIN 81 MG ENTERIC TABLET PO (08:58)
[2019-11-16] MEDS: predniSONE 20 MG TABLET 40 MG PO (08:58)
[2019-11-16] MEDS: OLMESARTAN MEDOXOMIL 20 MG TABLET 40 MG PO (08:58)
[2019-11-16] MEDS: ENOXAPARIN 40 MG/0.4 ML SYRINGE SUB-Q (08:58)
[2019-11-16] MEDS: METOPROLOL SUCCINATE EXT REL 50 MG TABCR PO (08:58)
[2019-11-16] MEDS: FUROSEMIDE 40 MG TABLET PO (08:58)
[2019-11-16] MEDS: SIMVASTATIN 10 MG TABLET PO (08:58)
[2019-11-16] MEDS: SILVERGEL (ELTA) 45 ML 1 APPLIC TOPICAL (09:03)
[2019-11-16] MEDS: EUCERIN CREAM 120 GM JAR 1 APPLIC TOPICAL (09:03)
[2019-11-16] MEDS: ACETAMINOPHEN 325 MG TABLET 650 MG PO (09:06)
--- NOTE | 2019-11-16 16:16 | PM.DS ---
DS: Admitting Diagnosis Admitting Diagnosis Admitting Diagnosis: Acute on chronic diastolic (congestive) heart failure DS: Discharge Diagnosis Discharge Diagnosis (1) CHF exacerbation: Code(s): I50.9 - Heart failure, unspecified Status: Acute Assessment and Plan: Patient presented with increased SOB and was edematous on exam. His BNP was mildly elevated at 641. He had a recent echo in August 2019 which revealed normal EF at 55-60% and abnormal diastolic function. His symptoms of SOB and MUNOZ were felt to be multifactorial with diastolic dysfunction contributing. He was diuresed with IV lasix. His home lasix was increased to 40 mg daily. He was educated on maintaining a heart healthy diet and completing daily weights. (2) COPD exacerbation: Code(s): J44.1 - Chronic obstructive pulmonary disease with (acute) exacerbation Status: Acute Assessment and Plan: He is chronically on 3 L of oxygen at home, but reports he only uses oxygen sporadically and will remove for extended portions of his day. ABG revealed elevated pCO2 consistent with prior readings and very mildly decreased PO2. On BMP, his CO2 levels were elevated consistent with prior levels, related to CO2 retention from COPD. He denied cough or sputum production. He maintained adequate oxygenation on his typical 3L. He was given a one time dose of IV solu-medrol and then transitioned to PO Prednisone which he will continue outpatient with taper. He will continue his inhalers outpatient. He was instructed to use oxygen consistently at rest and with exertion. (3) Chronic hypercapnic respiratory failure: Code(s): J96.12 - Chronic respiratory failure with hypercapnia Status: Acute Assessment and Plan: ABG revealed elevated pCO2 consistent with prior readings and pH was well compensated. He will continue oxygen supplementation at home. An apnea link was completed on 11/15/19 which showed he was in the normal range at low risk for pathologic breathing disorder, however, I believe he will benefit from a formal sleep study as an outpatient (4) Essential hypertension: Code(s): I10 - Essential (primary) hypertension Status: Acute Assessment and Plan: Blood pressures were reviewed and initially elevated but displayed improvement, likely secondary to diuresis. He will continue metoprolol and olmesartan. His lasix was increased to 40 mg daily. DS: Summary Hospital Course Reason for hospitalization: Shortness of breath Hospital Course: Date of admission: 11/13/2019 Date of discharge: 11/16/2019 Chetan Reddy is a 69 year old male with a PMH significant for COPD, CAD, diastolic CHF, and HTN who presented to the emergency department on 11/13/2019 with complaints of shortness of breath that had been increasing for approximately 3 days prior to presentation. He came to the hospital to attend a wound care appointment, but he became so SOB that he felt he needed to go to the emergency department and did not make it to the appointment. He reports he had been using his oxygen at the time. At presentation, BP 186/73, 96% on 3L, CO2 >40, ABG with pH 7.4, pCO2 74.2, pO2 76.9, and HCO3 46.0, BNP 641, Troponin <0.012, and CXR revealing chronic elevation of right hemidiaphragm and mild atelectasis at the lung base. He was admitted to the hospitalist service on 11/13/2019. He remained stable on his typical 3L. He was diuresed and was given brief IV steroids. He will continue PO prednisone as an outpatient, as well as inhalers. His furosemide was increased. He began feeling much better and requested discharge. Given his symptomatic improvement, he was determined to no longer require inpatient care. I educated him on maintaining a heart health diet as well as all medication changes. He will need to follow up with Dr. Bauman in 1-2 weeks as well as reschedule his wound care appointment. All of his questions were answered. He was discharged home in
== END 2019-11-16 16:50 | disposition home or self-care (01) ==
LOC: ANHED 16:11 → ANH2MED 17:08
PROVIDERS: Physician Assistant; Admitting Provider Family Medicine; Emergency Provider Emergency Medicine; PCP Emergency Medicine; Visit Provider Internal Medicine
DX: I11.0 Hypertensive heart disease with heart failure (principal); I50.33 Acute on chronic diastolic (congestive) heart failure; J44.1 Chronic obstructive pulmonary disease with (acute) exacerbation; R60.0 Localized edema; Q80.9 Congenital ichthyosis, unspecified; I25.10 Atherosclerotic heart disease of native coronary artery without angina pectoris; N40.0 Benign prostatic hyperplasia without lower urinary tract symptoms; E78.5 Hyperlipidemia, unspecified; G47.33 Obstructive sleep apnea (adult) (pediatric); G62.9 Polyneuropathy, unspecified; E66.01 Morbid (severe) obesity due to excess calories; Z87.891 Personal history of nicotine dependence; Z95.5 Presence of coronary angioplasty implant and graft; Z99.81 Dependence on supplemental oxygen; Z68.39 Body mass index [BMI] 39.0-39.9, adult; Z77.29 Contact with and (suspected) exposure to other hazardous substances
CPT/HCPCS: 36415; 36600; 71046; 80048; 80053; 82375; 82805; 83050; 83880; 84484; 85025; 85610; 85730; 93005; 94640; 94762; 96365; 96372; 96375; 96376; 99285; A9270; G0378; J0131; J1650; J1940; J2930; J7512

== ENCOUNTER 2019-12-11 08:53 | Outpatient (RCR) | payer OTHER, SELFPAY ==
[2019-10-06 12:11] VITALS: BMI 42.9
--- NOTE | 2019-11-13 13:23 | PCWOUND ---
WOCN NOTE Had to cancel appointment for today, patient is in ER.
== END 2020-01-04 23:59 | disposition home or self-care (01) ==
LOC: ANHWOC 08:53
PROVIDERS: PCP Emergency Medicine; Visit Provider Emergency Medicine
DX: Q80.9 Congenital ichthyosis, unspecified (principal); R60.9 Edema, unspecified
CPT/HCPCS: 99212; A9270; G0463

== ENCOUNTER 2019-12-25 12:55 | Observation (INO) | payer OTHER, SELFPAY ==
[2019-12-25] VITALS (12 sets, daily range): BP systolic 133–229; BP diastolic 57–108; PULSE 52–69; RESP 18–26; TEMP 36.6–37.1; O2SAT 92–100; BMI 44.2
--- NOTE | ~2019-12-25 | XR_ITS ---
EXAMINATION: XR chest 2V DATE: 12/25/2019 14:15 INDICATION: Shortness of breath. TECHNIQUE: Frontal and lateral views of the chest were obtained. COMPARISON: Chest 2 views 11/13/2019, chest CT 01/01/2018 FINDINGS: There is chronic elevation of right hemidiaphragm. There is mild atelectasis at right lung base. No pleural effusion or pneumothorax. The heart size is normal. IMPRESSION: 1. Chronic elevation of right hemidiaphragm with mild atelectasis at right lung base. Reviewed, dictated and finalized at location A.
[2019-12-25] MEDS: ALBUTEROL SULFATE NEB 2.5 MG/0.5 ML INH 5 MG INHALATION ×2 (14:16→20:49)
[2019-12-25] MEDS: IPRATROPIUM BR 0.02% INH SOLN 0.5 MG/2.5 ML VIAL INHALATION ×2 (14:16→20:49)
[2019-12-25 14:37] LABS: Basophils Absolute Auto 0.1 K/mm3 (0.0-0.1); Basophils Percent Auto 0.6 % (0.2-1.2); Eosinophils Absolute Auto 0.1 K/mm3 (0-0.3); Eosinophils Percent Auto 1.2 % (0-4.4); Hemoglobin 10.9 g/dL (14.0-18.0); Immature Granulocyte Absolute 0.03 K/mm3 (0.00-0.031); Immature Granulocyte Percent A 0.3 % (0-0.5); Lymphocytes Absolute Auto 2.15 K/mm3 (0.9-3.2); Lymphocytes Percent Auto 24.1 % (18.3-44.2); Mean Corpuscular HGB Conc 32.1 g/dl (32-36); Mean Corpuscular Volume 90.4 fl (80-100); Mean Platelet Volume 10.3 fl (7.4-10.4); Monocytes Absolute Auto 0.8 K/mm3 (0.1-0.6); Monocytes Percent Auto 8.7 % (2.6-8.5); Neutrophils Absolute Auto 5.8 K/mm3 (1.3-6.7); Neutrophils Percent Auto 65.1 % (45.5-73.1); Platelet Count Result 158 k/mm3 (150-375); Red Blood Count 3.76 M/mm3 (4.6-6.20); Red Cell Distribution Width 12.5 % (11.5-14.5); White Blood Count 8.9 K/mm3 (4.5-10.0)
--- NOTE | 2019-12-25 14:37 | ED.SOB ---
HPI - SOB/Dyspnea General Chief Complaint: Shortness of Breath/Dyspnea Stated Complaint: Difficulty breathing Time Seen by Provider: 12/25/19 13:17 History of Present Illness HPI Narrative: Patient is 69-year-old male who presents the ER with shortness of breath. He went to his wound care appointment and was getting short of breath on the way and had to turn his oxygen from 3 L to 4 L. Reports over the last day he has noticed little bit of nasal irritation and occasional bleeding. No chest pain/fever/chills/cough. Denies nausea/vomiting. No new swelling to legs which are chronically swollen. Related Data Home Medications Medication Instructions Recorded Confirmed albuterol sulfate 90 mcg/actuation 1 inhalation INHALATION Q4H 06/23/19 11/13/19 aerosol inhaler Adult Low Dose Aspirin 81 mg PO DAILY 11/13/19 11/13/19 simvastatin 10 mg PO DAILY 11/13/19 11/13/19 olmesartan [Benicar] 40 mg PO DAILY 12/25/19 12/25/19 Allergies Allergy/AdvReac Type Severity Reaction Status Date / Time No Known Allergies Allergy Verified 12/25/19 13:26 Review of Systems Review of Systems: All systems reviewed & are unremarkable except as noted in HPI and below Constitutional: Constitutional: Denies chills, Denies fever(s) and Denies weakness ENT: Reports epistaxis, Denies nasal congestion and Denies sore throat Cardiovascular: Cardiovascular: Denies chest pain and Denies radiating jaw, neck or arm pain Respiratory: Respiratory: Denies cough, Reports dyspnea and Reports wheezing Gastrointestinal: Gastrointestinal: Denies abdominal pain, Denies nausea and Denies vomiting [facility] Social History Social History Social History: Patient had 3 children but his 1 son at the age of 21 of a [place] in his daughter due to complications of spina bifida at the age of 24. The 1 remaining son is healthy and is the durable power city attorney for healthcare. Code status: Full code. Primary care physician: Dr. Luis M Bauman Smoking packs per day: 1 Smoking cigarettes per day: 20.0 Years smoked: 50 Smoking pack-years: 50.00 Smoking status: Former smoker Additional smoking assessment comments: He quit smoking in 2018. Alcohol intake: former Drinks per week: 1 Substance use: never Substance use type: does not use Additional living arrangements comments: He has been since 2018. He is in the process of moving to [place] to stay with his only living son all the time. He still owns his own home in [place]. She uses a cane for ambulation from time to time. 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 Gender identity (if verbalized by the patient): Male Spiritual care concerns: No Agree to blood products: Yes Exam Narrative: Exam Narrative: GENERAL: Chronically ill-appearing, morbidly obese, and in no acute distress. HEAD: Normocephalic, atraumatic. ENT: Mucous membranes moist. CHEST: Faint scattered wheezing.. No respiratory distress. HEART: Regular rate and rhythm. Normal peripheral pulses. ABDOMEN: Soft, nontender, nondistended. EXTREMITIES: Normal range of motion. Significant bilateral lower extremity edema with chronic venous stasis changes and flaking skin extending up past the thighs. SKIN: Warm, dry, chronic venous stasis changes. NEURO: Alert and oriented x3. Course Course Emergency Course: Ambulated with hypoxia on home 3 L down to 82% after 30 feet. Admit to hospitalist service, start IV steroids. Vital Signs Vital signs: Vital Signs Temperature 98.7 F 12/25/19 13:03 Pulse Rate 64 12/25/19 13:03 Respiratory Rate 26 H 12/25/19 13:03 Blood Pressure 170/57 H 12/25/19 13:03 Pulse Oximetry 92 12/25/19 13:03 Temperature 98.7 F 12/25/19 13:03 Pulse Rate 52 L 12/25/19 16:47 Respiratory Rate 20 12/25/19 16:47 Blood Pressure 180/88 H 12/25/19 16:
[2019-12-25 14:48] LABS: Blood Urea Nitrogen 14 mg/dL (9-20); Calcium 8.4 mg/dL (8.4-10.2); Carbon Dioxide > 40 mmol/L (22-30); Chloride 96 mmol/L (98-107); Estimated CRCL calculation 101 ml/min; Estimated Glomerular Filt Rate > 60; Glucose 123 mg/dL (75-110); Potassium 4.3 mmol/L (3.4-5.0); Sodium 139 mmol/L (137-145)
[2019-12-25 15:47] LABS: Alveolar/Arterial O2 Gradient 67.3 mmHg; Base Excess ABG 9.9 mEq/l (+/-2.0); Carboxyhemoglobin 0.2 % THb (0-2.0); Fractional Inspired Oxygen 32 %; HCO3 ABG 37.3 mEq/l (22.0-26.0); Methemoglobin ABG 0.3 %THb (0-1.5); Oxygen Saturation ABG 95.9 % (95.0-100.0); PO2 ABG 84.9 mmHg (80.0-100.0); PO2 FiO2 Ratio Arterial Blood 2.65 %; Reduced Hemoglobin 4.5 %THb (0-5.0); Total Hemoglobin 11.9 g/dL (12.0-18.0); pH ABG 7.377 (7.350-7.450)
[2019-12-25 15:52] LABS: Device NASAL CANNULA; PCO2 ABG 64.9 mmHg (35.0-45.0); Site Drawn LEFT BRACHIAL
[2019-12-25] MEDS: methylPREDNISolone SOD SUCC 125 MG VIAL IV PUSH (16:48)
--- NOTE | 2019-12-25 18:08 | PC.NURSE ---
1715 pt taken on a walk test and oxygen sats dropped to 82
--- NOTE | 2019-12-25 19:01 | ADMGEN ---
This patient, Chetan Lazaro, was admitted to [facility] Surg Room 323-01. Patient/family oriented to hospital policies and general routines including ID bracelet, bed and alarms, visiting hours, pain management, procedures, bathroom and other care routines, personal items, smoking policy, room service/diet, and visiting hours. Valuables list has been completed. Information on how to activate the Rapid Response Team has been discussed. Patient/Family are encouraged to report perceived risks to care and to ask questions if they do not understand what they are told or what they should do.
--- NOTE | 2019-12-25 20:38 | PM.IMHP ---
H&P: HPI History of Present Illness Chief complaint: Low oxygen saturations Narrative: Date and time of patient contact: 12/25/2019 at 8:50 p.m. Chetan Lazaro is a 69 year old male Of chronic hypercapnic/hypoxic respiratory failure, coronary artery disease, diastolic congestive heart failure and COPD on chronic home O2 who presented to the ER from the wound clinic due to low oxygen saturations and shortness of breath. The patient reports that any time he has to transition to bottle oxygen from his home concentrator that he automatically feels more short of breath. He reports he has not been out of his house since he was discharged from the hospital on 11/16/2019. He reports any time it is hot and humid he has more trouble breathing. However he had to leave the house today in order to come for a wound care appointment. He reported that when he ambulated to his vehicle he had to sit in his car and weight about 10 minutes to recover his breathing. He reports that once the car was cool down his shortness of breath improved. When he arrived to the hospital he had to park a significant distance from the hospital entrance. By the time he ambulated to the hospital lobby he was markedly short of breath. He increased his oxygen to 4 L nasal cannula (usual home O2 is 3 L). It still took him about 15 minutes to recover. When he arrived at the wound care center the the nursing staff thought the patient appeared mcdaniel. They checked an oxygen saturation which was reportedly in the 60s per his report but was up to 86% in triage. He has noticed that he has been wheezing more since he left the house today. He has not been having any cough or congestion. He has not had any fevers or chills. He has a nebulizer machine at home from when his was alive but he does not use a nebulizer machine. Does not have prescriptions for albuterol or Atrovent nebulizers. He has chronic lower extremity edema and does not feel that his legs are any more swollen than usual. Venous stasis ulcer to his left lower extremity that he reports is healing well. He denies any dysuria or hematuria. He has had mild, gradual decrease in urinary stream. He denies any symptoms of incomplete bladder emptying. Review of Systems Review of Systems: Narrative: 12 systems were reviewed with pertinent positives and negatives per HPI. Except as documented in the HPI, all other systems were reviewed and are negative. PMFSH Past Medical History Medical History (Updated 12/25/19 @ 23:38 by Phuong Horton DO) Agent orange exposure Benign prostatic hyperplasia Chronic obstructive pulmonary disease Chronic respiratory failure with hypoxia and hypercapnia Coronary artery disease With history of stent x1. Normal stress test January 2017 Diastolic CHF Grade 2 pseudonormal diastolic dysfunction noted on echocardiogram from January 2017 but most recent echocardiogram for September 2019 also a difficult study demonstrated normal ejection fraction with no evidence of diastolic dysfunction Essential hypertension Hyperlipidemia Ichthyosis Mild obstructive sleep apnea Patient does not use CPAP. His last sleep study was over 10 years ago. Peripheral neuropathy Mainly in the toes bilaterally. Surgical History Surgical History History of bilateral cataract extraction History of heart artery stent History of tonsillectomy Family History Family History Father Brain tumor Mother Dementia Sibling Measles Son , At 21 years old Acute myocardial infarction Daughter Spina bifida in her 20s Social History Social History Social History: Patient had 3 children but his 1 son at the age of 21 of a [place] in his daughter due to complications of spina bifida at the age of 24. The 1 remaining son is healt
[2019-12-25] MEDS: METOPROLOL TARTRATE 50 MG TAB PO (21:23)
[2019-12-25] MEDS: ACETAMINOPHEN 325 MG TABLET 650 MG PO (22:41)
[2019-12-26] VITALS (14 sets, daily range): BP systolic 151–168; BP diastolic 50–83; PULSE 48–92; RESP 18–20; TEMP 36.3–36.6; O2SAT 99–100
[2019-12-26] MEDS: IPRATROPIUM BR 0.02% INH SOLN 0.5 MG/2.5 ML VIAL INHALATION ×4 (02:35→21:22)
[2019-12-26] MEDS: ALBUTEROL SULFATE NEB 2.5 MG/0.5 ML INH 5 MG INHALATION ×4 (02:35→21:22)
[2019-12-26] MEDS: EUCERIN CREAM 120 GM JAR 1 APPLIC TOPICAL (08:05)
[2019-12-26] MEDS: OLMESARTAN MEDOXOMIL 20 MG TABLET 40 MG PO (08:05)
[2019-12-26] MEDS: ASPIRIN 81 MG CHEWABLE TABLET PO (08:06)
[2019-12-26] MEDS: predniSONE 20 MG TABLET 40 MG PO (08:06)
[2019-12-26] MEDS: METOPROLOL TARTRATE 50 MG TAB PO ×2 (08:06→20:26)
[2019-12-26] MEDS: SIMVASTATIN 10 MG TABLET PO (08:06)
[2019-12-26] MEDS: FLUTICASONE/SALMETEROL 115-21 MCG INHALER 1 PUFF 2 PUFF INHALATION ×2 (08:36→21:22)
[2019-12-26] MEDS: ENOXAPARIN 40 MG/0.4 ML SYRINGE SUB-Q ×2 (09:00→20:26)
--- NOTE | 2019-12-26 16:12 | PM.IMPN ---
Progress Note: A&P Assessment and Plan (1) COPD exacerbation: Code(s): J44.1 - Chronic obstructive pulmonary disease with (acute) exacerbation Status: Acute Assessment and Plan: The patient received 1 dose of IV Solu-Medrol in the ER and started on neb treatments and Prednisone. He feels better but still MUNOZ. Continue scheduled nebs. He would benefit from Pulmonary rehab. Possibly home tomorrow if continues to improve. 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 He has a left lower extremity wound that is being managed by the wound care center. Continue current wound care. (3) Uncontrolled hypertension: Code(s): I10 - Essential (primary) hypertension Status: Acute Assessment and Plan: On 12/26/2019. Blood pressure was markedly elevated on admission but improved overall. Continue metoprolol and Benicar. Will continue IV hydralazine as needed for systolic blood pressures greater than 160. (4) Chronic respiratory failure with hypoxia and hypercapnia: Code(s): J96.11 - Chronic respiratory failure with hypoxia; J96.12 - Chronic respiratory failure with hypercapnia Status: Acute Assessment and Plan: Patient with known hypoxia requiring supplemental oxygen. ABG on admission shows elevated PCO2 that appears to be chronic. Right-sided pressures were not well defined by echocardiogram in September. (5) Diastolic CHF: Code(s): I50.30 - Unspecified diastolic (congestive) heart failure Status: Acute Assessment and Plan: Echo in September was a poor study but showed EF of 55% and abnormal diastolic dysfunction. CXR showing chronic findings but no pulm edema. No BNP. Not on Lasix chronically. Continue to monitor. (6) Mild obstructive sleep apnea: Code(s): G47.33 - Obstructive sleep apnea (adult) (pediatric) Status: Acute Assessment and Plan: Does not use CPAP Subjective Date/time seen: 12/26/19 16:12 Interval history: 69yo male with chronic respiratory failure here for COPD exacerbation. Patietn feels better. Minimal SOB but still with MUNOZ. No wheezing. No CP. Slight cough. Exam Narrative: Exam Narrative: AF 151/72 58 18 100% ra Gen - NARD sitting up in chair Chest - few basilar crackles with distatn breath sounds. no wheezing CV - RRR, S1/S2 Abd - soft, obese, NT/ND,+BS Ext - massive bilaterally LE. Left ankle dressing clean and dry. Psych - nml mood and affect Skin - leathery skin bilateral LE with icthyosis. Chronic venous skin changes. Objective Data Vital Signs Vital Signs: Vital Signs - 24 hr 12/25/19 16:47 12/25/19 18:59 12/25/19 20:50 Temperature 97.8 F Pulse Rate 52 L 65 66 Respiratory Rate 20 18 20 Blood Pressure 180/88 H 184/79 H Pulse Oximetry 100 100 12/25/19 21:00 12/25/19 21:23 12/25/19 22:00 Temperature 98.2 F Pulse Rate 69 69 57 L Respiratory Rate 20 20 Blood Pressure 171/72 H Pulse Oximetry 99 12/26/19 02:36 12/26/19 02:43 12/26/19 06:00 Temperature 97.4 F L Pulse Rate 61 65 51 L Respiratory Rate 18 18 20 Blood Pressure 168/83 H Pulse Oximetry 100 12/26/19 08:06 12/26/19 08:39 12/26/19 08:49 Temperature Pulse Rate 80 49 L 92 Respiratory Rate 18 18 Blood Pressure Pulse Oximetry 99 12/26/19 14:00 12/26/19 14:35 12/26/19 14:42 Temperature 97.9 F Pulse Rate 90 55 L 58 L Respiratory Rate 18 18 18 Blood Pressure 151/72 H Pulse Oximetry 100 Intake/Output Intake/Output: Intake & Output 12/23/19 12/24/19 12/25/19 12/26/19 23:59 23:59 23:59 23:59 Intake Total 830 Balance 830 Meds/Results Medications: Active Medications Generic Name Dose Route Start Last Admin Trade Name Freq PRN Reason Stop Dose Admin Acetaminophen 650 mg 12/25/19 16:45 12/25/19 22
[2019-12-27] VITALS (10 sets, daily range): BP systolic 150–161; BP diastolic 49–62; PULSE 53–76; RESP 18–20; TEMP 36.4–36.6; O2SAT 92–98
[2019-12-27] MEDS: IPRATROPIUM BR 0.02% INH SOLN 0.5 MG/2.5 ML VIAL INHALATION ×3 (02:37→13:47)
[2019-12-27] MEDS: ALBUTEROL SULFATE NEB 2.5 MG/0.5 ML INH 5 MG INHALATION ×3 (02:38→13:47)
[2019-12-27] MEDS: FLUTICASONE/SALMETEROL 115-21 MCG INHALER 1 PUFF 2 PUFF INHALATION (08:09)
[2019-12-27] MEDS: predniSONE 20 MG TABLET 40 MG PO (08:26)
[2019-12-27] MEDS: METOPROLOL TARTRATE 50 MG TAB PO (08:26)
[2019-12-27] MEDS: ENOXAPARIN 40 MG/0.4 ML SYRINGE SUB-Q (08:26)
[2019-12-27] MEDS: ASPIRIN 81 MG CHEWABLE TABLET PO (08:29)
[2019-12-27] MEDS: OLMESARTAN MEDOXOMIL 20 MG TABLET 40 MG PO (08:29)
[2019-12-27] MEDS: SIMVASTATIN 10 MG TABLET PO (08:29)
[2019-12-27] MEDS: EUCERIN CREAM 120 GM JAR 1 APPLIC TOPICAL (08:30)
[2019-12-27] MEDS: TOLNAFTATE 1% POWDER 45 GM BTL 1 APPLIC TOPICAL (08:30)
--- NOTE | 2019-12-27 15:28 | PM.DS ---
DS: Admitting Diagnosis Admitting Diagnosis Admitting Diagnosis: Chronic obstructive pulmonary disease with (acute) exacerbation DS: Discharge Diagnosis Discharge Diagnosis (1) COPD exacerbation: Code(s): J44.1 - Chronic obstructive pulmonary disease with (acute) exacerbation Status: Acute Assessment and Plan: The patient received 1 dose of IV Solu-Medrol in the ER and started on neb treatments and Prednisone. He was started on scheduled nebs. He is now up walking in the halls. He feels back to his baseline. He is agreeable with discharge. 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 He has a left lower extremity wound that is being managed by the wound care center. Continue current wound care. (3) Uncontrolled hypertension: Code(s): I10 - Essential (primary) hypertension Status: Acute Assessment and Plan: Blood pressure monitored closely. Blood pressure was markedly elevated on admission but improved overall. We continued metoprolol and Benicar. We had IV hydralazine available as needed but he did not require this. Blood pressure improved. (4) Chronic respiratory failure with hypoxia and hypercapnia: Code(s): J96.11 - Chronic respiratory failure with hypoxia; J96.12 - Chronic respiratory failure with hypercapnia Status: Acute Assessment and Plan: Patient with known hypoxia requiring supplemental oxygen. ABG on admission shows elevated PCO2 that appears to be chronic. Right-sided pressures were not well defined by echocardiogram in September. (5) Diastolic CHF: Code(s): I50.30 - Unspecified diastolic (congestive) heart failure Status: Acute Assessment and Plan: Echo in September was a poor study but showed EF of 55% and abnormal diastolic dysfunction. CXR showing chronic findings but no pulmonary edema. Not on Lasix chronically. (6) Mild obstructive sleep apnea: Code(s): G47.33 - Obstructive sleep apnea (adult) (pediatric) Status: Acute Assessment and Plan: Does not use CPAP DS: Summary Hospital Course Reason for hospitalization: 69yo male with chronic respiratory failure here for COPD exacerbation. Please see H&P for details. Hospital Course: As above. Time Spent with Patient Time attestation: Total time spent providing and/or coordinating discharge services:32 minutes Time spent: Greater than 30 minutes Exam Narrative: Exam Narrative: AF 154/49 74 18 98% 3L Gen - NARD sitting up in chair Chest - Clear, distatn BS. no wheezing. CV - RRR, S1/S2 Abd - soft, obese, NT/ND,+BS Ext - massive bilaterally LE. Left ankle dressing clean and dry. Psych - nml mood and affect Skin - leathery skin bilateral LE with icthyosis. Chronic venous skin changes. Discharge Plan Discharge Attending physician on discharge: Adrian Wise Discharging Clinician: Adrian Wise Anticipated Discharge Date/Time: 12/27/19 15:35 Patient Disposition: Home, Self-Care Activity: as tolerated Diet: heart healthy Discharge Instructions: Rise slowly from a lying or sitting position. Pause before standing or walking. Take precautions to avoid falls. Patient Instructions: Pain Management (DC), Antibiotic Form Stand Alone Forms: General Discharge Information Follow-up/Referrals: Luis M Bauman MD [Primary Care Provider] - Follow Up with Primary Dr Discharge Medications: New albuterol sulfate 2.5 mg/0.5 mL Solution For Nebulization 2.5 mg inhalation Q6HRT PRN (Reason: shortness of breath or wheezing) Qty: 30 RF: 1 prednisone 10 mg tablet 40 mg PO DAILY@0800 Qty: 22 RF: 0 tolnaftate 1 % Powder 1 applic topical DAILY Qty: 0 RF: 0 Continued albuterol sulfate [ProAir HFA] 90 mcg/actuation HFA aerosol inhaler
== END 2019-12-27 16:35 | disposition home or self-care (01) ==
LOC: ANHED 18:41 → ANH3MEDSUR 18:51
PROVIDERS: Admitting Provider Internal Medicine; Emergency Provider Emergency Medicine; PCP Emergency Medicine; Visit Provider Internal Medicine
DX: J44.1 Chronic obstructive pulmonary disease with (acute) exacerbation (principal); Q80.9 Congenital ichthyosis, unspecified; J96.12 Chronic respiratory failure with hypercapnia; J96.11 Chronic respiratory failure with hypoxia; I25.10 Atherosclerotic heart disease of native coronary artery without angina pectoris; I11.0 Hypertensive heart disease with heart failure; I50.30 Unspecified diastolic (congestive) heart failure; R60.0 Localized edema; E78.5 Hyperlipidemia, unspecified; N40.0 Benign prostatic hyperplasia without lower urinary tract symptoms; G62.9 Polyneuropathy, unspecified; G47.33 Obstructive sleep apnea (adult) (pediatric); Z99.81 Dependence on supplemental oxygen; Z79.82 Long term (current) use of aspirin; Z87.891 Personal history of nicotine dependence; Z95.5 Presence of coronary angioplasty implant and graft
CPT/HCPCS: 36415; 36600; 71046; 80048; 82375; 82805; 83050; 85025; 94640; 96372; 96374; 99285; A9270; G0378; J1650; J2930; J7512

== ENCOUNTER 2020-02-19 07:39 | Outpatient (RCR) | payer OTHER, SELFPAY ==
[2020-01-05 00:03] VITALS: BMI 42.9
== END 2020-03-28 09:50 | disposition home health service (06) ==
LOC: ANHWOC 07:39
PROVIDERS: PCP Emergency Medicine; Visit Provider Emergency Medicine
DX: Q80.9 Congenital ichthyosis, unspecified (principal); R60.9 Edema, unspecified
CPT/HCPCS: 99212; 99213; A9270; G0463

== ENCOUNTER 2020-02-19 12:56 | Inpatient (IN) | payer OTHER, SELFPAY ==
--- NOTE | ~2020-02-19 | XR_ITS ---
EXAMINATION: XR chest 2V DATE: 02/19/2020 13:56 INDICATION: Shortness of breath TECHNIQUE: AP and lateral views of the chest are obtained. COMPARISON: 12/25/2019 FINDINGS: Again noted is chronic elevation of the right hemidiaphragm with atelectasis of the right l michelle base. No acute airspace opacities are identified. There is no pleural effusion or pneumothorax. T he cardiomediastinal silhouette is normal. There are bridging osteophytes at multiple levels in the s pine, consistent with diffuse idiopathic skeletal hyperostosis (DISH). IMPRESSION: 1. No acute cardiopulmonary abnormality. Reviewed, dictated and finalized at location A.
--- NOTE | 2020-02-19 13:54 | ED.GENADULT ---
HPI - General Adult General Chief complaint: Shortness of Breath/Dyspnea Stated complaint: sob, cellulitis lt leg Time Seen by Provider: 02/19/20 13:00 History of Present Illness HPI narrative: Patient is a 69-year-old male who presents ER from wound clinic. Patient had to have maggots debrided from his legs. Due to patient's habitus and chronic medical conditions he is now unable to truly care for himself. He has a son who lives at his house but does not provide care. Patient has increased shortness of breath with exertion but has had no change in oxygen requirement. No new cough. Patient has chronic extremity edema that he does not report is changed. Related Data Home Medications Medication Instructions Recorded Confirmed albuterol sulfate 90 mcg/actuation 1 inhalation INHALATION Q4H 06/23/19 12/25/19 aerosol inhaler Adult Low Dose Aspirin 81 mg PO DAILY 11/13/19 12/25/19 fluticasone propion-salmeterol 1 inhalation INHALATION DAILY 12/25/19 12/25/19 [Advair Diskus] olmesartan [Benicar] 40 mg PO DAILY 12/25/19 12/25/19 albuterol sulfate 02/19/20 albuterol sulfate 02/19/20 albuterol sulfate 02/19/20 02/19/20 Allergies Allergy/AdvReac Type Severity Reaction Status Date / Time No Known Allergies Allergy Verified 02/19/20 16:05 Review of Systems Review of Systems: All systems reviewed & are unremarkable except as noted in HPI and below Constitutional: Constitutional: Denies chills, Denies fever(s) and Reports weakness ENT: Denies nasal congestion and Denies sore throat Cardiovascular: Cardiovascular: Denies chest pain and Denies radiating jaw, neck or arm pain Respiratory: Respiratory: Denies cough, Reports dyspnea and Denies wheezing Gastrointestinal: Gastrointestinal: Denies abdominal pain, Denies diarrhea, Denies nausea and Denies vomiting [facility] Past Medical History Medical History (Updated 02/19/20 @ 16:49 by Jose Villalobos MD) Agent orange exposure Benign prostatic hyperplasia Chronic obstructive pulmonary disease Chronic respiratory failure with hypoxia and hypercapnia Coronary artery disease With history of stent x1. Normal stress test January 2017 Diastolic CHF Grade 2 pseudonormal diastolic dysfunction noted on echocardiogram from January 2017 but most recent echocardiogram for September 2019 also a difficult study demonstrated normal ejection fraction with no evidence of diastolic dysfunction Essential hypertension Hyperlipidemia Ichthyosis Mild obstructive sleep apnea Patient does not use CPAP. His last sleep study was over 10 years ago. Peripheral neuropathy Mainly in the toes bilaterally. Surgical History Surgical History History of bilateral cataract extraction History of heart artery stent History of tonsillectomy Family History Family History (Updated 12/25/19 @ 23:34 by Phuong Horton DO) Father Brain tumor Mother Dementia Sibling Measles Son , At 21 years old Acute myocardial infarction Daughter Spina bifida in her 20s Social History Social History Social History: Patient had 3 children but his 1 son at the age of 21 of a [place] in his daughter due to complications of spina bifida at the age of 24. The 1 remaining son is healthy and is the durable power insurance attorney for healthcare. Code status: Full code. Primary care physician: Dr. Luis M Bauman Smoking packs per day: 2 Smoking cigarettes per day: 40.0 Years smoked: 47 Smoking pack-years: 94.00 Smoking status: Former smoker Additional smoking assessment comments: He quit smoking in 2018. Alcohol intake: never Drinks per week: 1 Substance use: never Substance use type: does not use Additional living arrangements comments: He has been since 2018. He is in the process of moving to [place] to stay with his only living son
[2020-02-19 14:58] LABS: Basophils Absolute Auto 0.1 K/mm3 (0.0-0.1); Basophils Percent Auto 0.8 % (0.2-1.2); Eosinophils Absolute Auto 0.1 K/mm3 (0-0.3); Eosinophils Percent Auto 2.1 % (0-4.4); Hematocrit 34.9 % (42.0-52.0); Hemoglobin 10.5 g/dL (14.0-18.0); Immature Granulocyte Absolute 0.01 K/mm3 (0.00-0.031); Immature Granulocyte Percent A 0.2 % (0-0.5); Lymphocytes Absolute Auto 1.43 K/mm3 (0.9-3.2); Lymphocytes Percent Auto 21.5 % (18.3-44.2); Mean Corpuscular HGB Conc 30.1 g/dl (32-36); Mean Corpuscular Volume 93.1 fl (80-100); Mean Platelet Volume 9.7 fl (7.4-10.4); Monocytes Absolute Auto 0.7 K/mm3 (0.1-0.6); Monocytes Percent Auto 10.5 % (2.6-8.5); Neutrophils Absolute Auto 4.3 K/mm3 (1.3-6.7); Neutrophils Percent Auto 64.9 % (45.5-73.1); Platelet Count Result 178 k/mm3 (150-375); Red Blood Count 3.75 M/mm3 (4.6-6.20); Red Cell Distribution Width 13.2 % (11.5-14.5); White Blood Count 6.6 K/mm3 (4.5-10.0)
[2020-02-19 15:12] LABS: Lactic Acid Reflex 0.9 mmol/L (0.7-2.1)
[2020-02-19 15:22] LABS: NT Pro B Type Natriuretic Pept 513 PG/ML (5-100)
[2020-02-19 15:24] LABS: Anion Gap 4.99999 mmol/L (8-16); Blood Urea Nitrogen 12 mg/dL (9-20); Calcium 8.3 mg/dL (8.4-10.2); Carbon Dioxide > 40 mmol/L (22-30); Chloride 92 mmol/L (98-107); Estimated Glomerular Filt Rate > 60; Glucose 112 mg/dL (75-110); Potassium 3.9 mmol/L (3.4-5.0); Sodium 137 mmol/L (137-145)
[2020-02-19 16:00] VITALS: BP 184/55; PULSE 55; RESP 18; TEMP 36.4; O2SAT 100
--- NOTE | 2020-02-19 17:55 | PC.NURSE ---
This patient, Chetan Lazaro, was admitted to Medical Room 341-01. Patient/family oriented to hospital policies and general routines including ID bracelet, bed and alarms, visiting hours, pain management, procedures, bathroom and other care routines, personal items, smoking policy, room service/diet, and visiting hours. Valuables list has been completed. Information on how to activate the Rapid Response Team has been discussed. Patient/Family are encouraged to report perceived risks to care and to ask questions if they do not understand what they are told or what they should do.
[2020-02-19 18:08] VITALS: BMI 45.5
[2020-02-19 18:25] VITALS: BP 159/79; PULSE 57; RESP 18; TEMP 36.7; O2SAT 93
[2020-02-19 20:35] VITALS: BP 190/60; PULSE 65; RESP 22; TEMP 37; O2SAT 100
--- NOTE | 2020-02-19 20:40 | PM.IMHP ---
H&P: HPI History of Present Illness Date/Time: 02/19/20 20:40 Chief complaint: inability to care for himself/chronic leg wounds Narrative: Chetan Lazaro is a 69 year old male With a past medical history of chronic respiratory failure, COPD, hypertension, 60 oasis and chronic lower extremity wound who presented to the ER from wound care after having maggots debrided from his leg wound. Patient has had chronic lower extremity wounds left greater than right associated with lymphedema and lichen planus. The patient reports that his wounds had been progressively improving over time. He had been going to wound care every 2 weeks but recently they switched his appointments tab every 3 weeks. During his last 2 evaluations at wound care the patient was found to have maggots present on his left lower extremity. He reports that he changes the bandage is every 2 days at home. It is excessively difficult for him to change his bandage is as it causes him increased shortness of breath. He has noticed marked increase in the amount of serous drainage from his wounds over the last 5 or 6 weeks. He has not noticed any increased erythema to his extremities. His not noticed a change in the odor of his wounds. He reports that the open areas of his wounds are extremely tender specially the area on the posterior of his left leg and on the top of his right foot. He is chronically chilled but denies any fevers. He reports that over the last 3 weeks he is generally felt more fatigued and is not wanted to get up and do much of anything. He has had progressive increase in dyspnea on exertion over the last 6 months. He reports that if he ambulates to the bathroom and returns to sit down that he has to sit upright and struggle for several minutes before he can relax. He reports feeling very anxious about not being able to breathe after he has exerted himself. He has not used his nebulizer treatments since a few days after his previous hospitalization in December. He reports that it is difficult from the use the nebulizers if they come in 2 separate medications any as to mix them. The patient and I have discussed this in the past and I have encouraged him to increase his supplemental oxygen when he is getting up to move around but he does not do this. He denies any chest pain. He has not been having any palpitations. His chronic cough has been stable and unchanged. He has not noticed increased swelling in his lower extremities. He has not had any recent ill contacts. He reports that the changes in his shortness of breath have been insidious and slow. He does not feel that his breathing is changed significantly in the last couple of weeks. He lives with his son in [place]. He prefers to come here because that is where his received all of his prior medical care. He reports that his son cannot help in much since his son works full-time and works nights. The patient understands that he needs more help with caring for his wounds. Review of Systems Review of Systems: Narrative: 12 systems were reviewed with pertinent positives and negatives per HPI. Except as documented in the HPI, all other systems were reviewed and are negative. FOR[facility]LY [facility] Past Medical History Medical History Agent orange exposure Benign prostatic hyperplasia Chronic obstructive pulmonary disease Chronic respiratory failure with hypoxia and hypercapnia Coronary artery disease With history of stent x1. Normal stress test January 2017 Diastolic CHF Grade 2 pseudonormal diastolic dysfunction noted on echocardiogram from January 2017 but most recent echocardiogram for September 2019 also a difficult study demonstrated normal ejection fraction with no evidence of diastolic dysfunction Essential hypertension Hyperlipidemia Ichthyosis Mild obstructive sleep apnea Patient does not use CPAP. His last sleep study was over 10 years ago. Peripheral neuropathy Mainl
[2020-02-19] MEDS: hydrALAZINE HCL 20 MG/ML VIAL 10 MG IV PUSH (21:27)
[2020-02-19] MEDS: ENOXAPARIN 40 MG/0.4 ML SYRINGE SUB-Q (21:54)
[2020-02-19 23:24] VITALS: BP 171/52
[2020-02-20] VITALS (13 sets, daily range): BP systolic 145–171; BP diastolic 45–100; PULSE 50–115; RESP 16–22; TEMP 36.6–36.9; O2SAT 96–100
[2020-02-20] MEDS: IPRATROPIUM BR 0.02% INH SOLN 0.5 MG/2.5 ML VIAL INHALATION ×4 (02:50→19:39)
[2020-02-20] MEDS: ALBUTEROL SULFATE NEB 2.5 MG/0.5 ML INH 5 MG INHALATION ×4 (02:50→19:39)
[2020-02-20] MEDS: hydrALAZINE HCL 20 MG/ML VIAL 10 MG IV PUSH (06:13)
[2020-02-20] MEDS: ACETAMINOPHEN 325 MG TABLET 650 MG PO ×2 (06:50→18:30)
[2020-02-20] MEDS: predniSONE 20 MG TABLET 40 MG PO (07:50)
[2020-02-20] MEDS: EUCERIN CREAM 120 GM JAR 1 APPLIC TOPICAL (08:07)
[2020-02-20] MEDS: ENOXAPARIN 40 MG/0.4 ML SYRINGE SUB-Q ×2 (08:07→20:45)
[2020-02-20] MEDS: FUROSEMIDE 40 MG TABLET PO (08:07)
[2020-02-20] MEDS: TOLNAFTATE 1% POWDER 45 GM BTL 1 APPLIC TOPICAL (08:07)
[2020-02-20] MEDS: SIMVASTATIN 10 MG TABLET PO (08:07)
[2020-02-20] MEDS: METOPROLOL SUCCINATE EXT REL 50 MG TABCR PO ×2 (08:07→20:45)
[2020-02-20] MEDS: ASPIRIN 81 MG ENTERIC TABLET PO (08:07)
[2020-02-20] MEDS: OLMESARTAN MEDOXOMIL 20 MG TABLET 40 MG PO (08:07)
[2020-02-20 08:39] LABS: Basophils Absolute Auto 0.1 K/mm3 (0.0-0.1); Basophils Percent Auto 0.9 % (0.2-1.2); Eosinophils Absolute Auto 0.2 K/mm3 (0-0.3); Hematocrit 36.1 % (42.0-52.0); Hemoglobin 10.9 g/dL (14.0-18.0); Immature Granulocyte Absolute 0.03 K/mm3 (0.00-0.031); Immature Granulocyte Percent A 0.4 % (0-0.5); Lymphocytes Absolute Auto 2.22 K/mm3 (0.9-3.2); Mean Corpuscular HGB Conc 30.2 g/dl (32-36); Mean Corpuscular Volume 92.8 fl (80-100); Mean Platelet Volume 9.7 fl (7.4-10.4); Monocytes Absolute Auto 0.8 K/mm3 (0.1-0.6); Monocytes Percent Auto 11.4 % (2.6-8.5); Neutrophils Absolute Auto 4.1 K/mm3 (1.3-6.7); Neutrophils Percent Auto 55.3 % (45.5-73.1); Platelet Count Result 185 k/mm3 (150-375); Red Blood Count 3.89 M/mm3 (4.6-6.20); Red Cell Distribution Width 13.4 % (11.5-14.5); White Blood Count 7.4 K/mm3 (4.5-10.0)
[2020-02-20 08:40] LABS: Immature Reticulocyte Fraction 14.9 % (3.0-15.9); Reticulocyte Hemoglobin Conten 29.7 pg (28.2-35.7); Reticulocyte Percent 2.12 % (0.7-4.3); Reticulocytes Absolute 0.08 B/L (32.2-175.7)
[2020-02-20 08:58] LABS: Lactate Dehydrogenase 513 U/L (313-618)
[2020-02-20 09:01] LABS: Anion Gap 4.99999 mmol/L (8-16); Blood Urea Nitrogen 12 mg/dL (9-20); Calcium 8.4 mg/dL (8.4-10.2); Carbon Dioxide > 40 mmol/L (22-30); Chloride 91 mmol/L (98-107); Estimated CRCL calculation 116 ml/min; Estimated Glomerular Filt Rate > 60; Glucose 156 mg/dL (75-110); Potassium 3.8 mmol/L (3.4-5.0); Sodium 136 mmol/L (137-145)
[2020-02-20 09:07] LABS: Iron 59 ug/dL (49-181)
[2020-02-20 09:19] LABS: Percent Iron Saturation 15 % (20-50)
[2020-02-20 09:54] LABS: Alveolar/Arterial O2 Gradient 42.6 mmHg; Base Excess ABG 10.4 mEq/l (+/-2.0); Fractional Inspired Oxygen 32 %; HCO3 ABG 37.8 mEq/l (22.0-26.0); Oxygen Content ABG 16.6 %vol (16.0-22.0); Oxygen Saturation ABG 97.8 % (95.0-100.0); Oxyhemoglobin 96.8 % THb (90.0-100.0); PO2 ABG 109.5 mmHg (80.0-100.0); PO2 FiO2 Ratio Arterial Blood 3.42 %; Total Hemoglobin 12.1 g/dL (12.0-18.0); pH ABG 7.382 (7.350-7.450)
[2020-02-20 09:57] LABS: Device NASAL CANNULA; Modified Allen's Test Pass; Site Drawn LEFT RADIAL
[2020-02-20 10:02] LABS: Folic Acid 8.2 ng/mL (2.76->20)
--- NOTE | 2020-02-20 10:32 | PM.IMPN ---
Progress Note: A&P Assessment and Plan (1) Cellulitis of left leg: Code(s): L03.116 - Cellulitis of left lower limb Status: Acute Assessment and Plan: Continue cefazoline day 1 (2) Chronic wound of extremity: Status: Acute Assessment and Plan: Source of entry for cellulitis Follow with wound care as outpatient Wound care consultation pending (3) Lymphedema: Code(s): I89.0 - Lymphedema, not elsewhere classified Status: Acute Assessment and Plan: Renders resolution of wound issues improbable (4) Chronic respiratory failure with hypoxia and hypercapnia: Code(s): J96.11 - Chronic respiratory failure with hypoxia; J96.12 - Chronic respiratory failure with hypercapnia Status: Acute Assessment and Plan: COPD, AUBREY, obesity-hypoventilation (5) Diastolic CHF: Qualifiers: Heart failure chronicity: chronic Qualified Code(s): I50.32 - Chronic diastolic (congestive) heart failure Code(s): I50.30 - Unspecified diastolic (congestive) heart failure Status: Acute Assessment and Plan: Clinically stable (6) Mild obstructive sleep apnea: Code(s): G47.33 - Obstructive sleep apnea (adult) (pediatric) Status: Acute Assessment and Plan: Home bipap (7) COPD (chronic obstructive pulmonary disease): Qualifiers: COPD type: unspecified COPD Qualified Code(s): J44.9 - Chronic obstructive pulmonary disease, unspecified Code(s): J44.9 - Chronic obstructive pulmonary disease, unspecified Status: Acute Assessment and Plan: Clinically stable (8) Essential hypertension: Code(s): I10 - Essential (primary) hypertension Status: Acute Assessment and Plan: 02/19 171/100 in AM 02/19 ordered chlorthalidone Continue PRN hydralazine Subjective Date/time seen: 02/20/20 10:32 Interval history: Admitted 02/18 with bilateral LE lymphedema with worsening leg and foot wounds and cellulitis. 02/19: Still with some mild to moderate LE pain, relieved by acetaminophen. Tolerated diet. No other c/o. Review of Systems Review of Systems: All systems reviewed & are unremarkable except as noted in HPI and below Exam Narrative: Exam Narrative: HEENT: EOMI, PERRL, sclerae nonicteric, pharyngeal mucosa pink and intact NECK: No JVD CHEST: Clear to auscultation. Normal effort. HEART: NL S1/S2, regular, no murmur ABDOMEN: BS+, soft, nontender, no mass, no bruits EXTREMITIES: No cyanosis. BILATERAL LEG LYMPHEDEMA, FISSURING OF SKIN RIGHT DORSAL FOOT, LEFT POSTEROLATERAL LEG, ERYTHEMA BILATERAL LEGS, LEFT > RIGHT. NEUROLOGIC: CN intact and symmetric to inspection. MUSCULOSKELETAL: Tone and strength symmetric. PSYCH: Alert. Oriented to person, place, and time. Objective Data Vital Signs Vital Signs: Vital Signs - 24 hr 02/19/20 16:00 02/19/20 18:25 02/19/20 20:35 Temperature 97.6 F 98.1 F 98.6 F Pulse Rate 55 L 57 L 65 Respiratory Rate 18 18 22 H Blood Pressure 184/55 H 159/79 H 190/60 H Pulse Oximetry 100 93 100 02/19/20 23:24 02/20/20 02:53 02/20/20 02:59 Temperature Pulse Rate 58 L 52 L Respiratory Rate 16 16 Blood Pressure 171/52 H Pulse Oximetry 96 02/20/20 06:00 02/20/20 08:07 02/20/20 09:49 Temperature 98.2 F Pulse Rate 70 115 H 60 Respiratory Rate 22 H 20 Blood Pressure 171/100 H Pulse Oximetry 100 97 02/20/20 10:01 Temperature Pulse Rate 52 L Respiratory Rate 20 Blood Pressure Pulse Oximetry Intake/Output Intake/Output: Intake & Output 02/17/20 02/18/20 02/19/20 02/20/20 23:59 23:59 23:59 23:59 Intake Total 590 Balance 590 Meds/Results Medications: Active Medications Generic Name Dose Route Start Last Admin Trade Name Freq PRN Reason Stop Dose Admin Acetaminophen 650 mg 02/19/20 15:40 02/20/20 06:50 Tylenol Tablet PO 650 mg Q4H PRN Administration Mild Pain (1-3) or Fever Albuterol 5 mg 09
[2020-02-20] MEDS: CHLORTHALIDONE 25 MG TABLET PO (17:05)
[2020-02-20] MEDS: FLUTICASONE/SALMETEROL 115-21 MCG INHALER 1 PUFF 2 PUFF INHALATION (19:41)
--- NOTE | 2020-02-20 19:52 | PCRCNOTE ---
PT DOES NOT WANT TO USE OUR CPAP EQUIPMENT. ENCOURAGED PATIENT TO NOTIFY US OR HIS NURSE IF HE CHANGES HIS MIND.
[2020-02-21] VITALS (12 sets, daily range): BP systolic 118–164; BP diastolic 63–81; PULSE 48–73; RESP 18–22; TEMP 36.8–37; O2SAT 98–100
[2020-02-21] MEDS: IPRATROPIUM BR 0.02% INH SOLN 0.5 MG/2.5 ML VIAL INHALATION ×3 (02:07→20:10)
[2020-02-21] MEDS: ALBUTEROL SULFATE NEB 2.5 MG/0.5 ML INH 5 MG INHALATION ×3 (02:07→20:10)
[2020-02-21] MEDS: ACETAMINOPHEN 325 MG TABLET 650 MG PO ×3 (04:35→18:47)
[2020-02-21] MEDS: CHLORTHALIDONE 25 MG TABLET PO (09:23)
[2020-02-21] MEDS: FUROSEMIDE 40 MG TABLET PO (09:23)
[2020-02-21] MEDS: ASPIRIN 81 MG ENTERIC TABLET PO (09:23)
[2020-02-21] MEDS: TOLNAFTATE 1% POWDER 45 GM BTL 1 APPLIC TOPICAL (09:23)
[2020-02-21] MEDS: SIMVASTATIN 10 MG TABLET PO (09:23)
[2020-02-21] MEDS: EUCERIN CREAM 120 GM JAR 1 APPLIC TOPICAL (09:24)
[2020-02-21] MEDS: ENOXAPARIN 40 MG/0.4 ML SYRINGE SUB-Q ×2 (09:27→20:58)
[2020-02-21] MEDS: METOPROLOL SUCCINATE EXT REL 50 MG TABCR PO ×2 (09:30→20:58)
[2020-02-21] MEDS: FLUTICASONE/SALMETEROL 115-21 MCG INHALER 1 PUFF 2 PUFF INHALATION ×2 (10:20→20:14)
--- NOTE | 2020-02-21 10:27 | PM.IMPN ---
Progress Note: A&P Assessment and Plan (1) Cellulitis of left leg: Code(s): L03.116 - Cellulitis of left lower limb Status: Acute Assessment and Plan: Continue cefazoline day 2 (2) Chronic wound of extremity: Status: Acute Assessment and Plan: Source of entry for cellulitis Follow with wound care and HH as outpatient Wound care consultation pending (3) Lymphedema: Code(s): I89.0 - Lymphedema, not elsewhere classified Status: Acute Assessment and Plan: Renders resolution of wound issues improbable Consider leg pumps if wounds heal (4) Chronic respiratory failure with hypoxia and hypercapnia: Code(s): J96.11 - Chronic respiratory failure with hypoxia; J96.12 - Chronic respiratory failure with hypercapnia Status: Acute Assessment and Plan: COPD, AUBREY, obesity-hypoventilation (5) Diastolic CHF: Qualifiers: Heart failure chronicity: chronic Qualified Code(s): I50.32 - Chronic diastolic (congestive) heart failure Code(s): I50.30 - Unspecified diastolic (congestive) heart failure Status: Acute Assessment and Plan: Clinically stable (6) Mild obstructive sleep apnea: Code(s): G47.33 - Obstructive sleep apnea (adult) (pediatric) Status: Acute Assessment and Plan: Home bipap (7) COPD (chronic obstructive pulmonary disease): Qualifiers: COPD type: unspecified COPD Qualified Code(s): J44.9 - Chronic obstructive pulmonary disease, unspecified Code(s): J44.9 - Chronic obstructive pulmonary disease, unspecified Status: Acute Assessment and Plan: Clinically stable (8) Essential hypertension: Code(s): I10 - Essential (primary) hypertension Status: Acute Assessment and Plan: 02/19 171/100 in AM 02/19 ordered chlorthalidone 02/20 BP trending down, so continue to monitor Subjective Date/time seen: 02/21/20 10:27 Interval history: Admitted 02/18 with bilateral LE lymphedema with worsening leg and foot wounds and cellulitis. 02/20: Less LE pain, relieved by acetaminophen. Still with significant drainage. Tolerated diet. No other c/o. Review of Systems Review of Systems: All systems reviewed & are unremarkable except as noted in HPI and below Exam Narrative: Exam Narrative: HEENT: EOMI, PERRL, sclerae nonicteric, pharyngeal mucosa pink and intact NECK: No JVD CHEST: Clear to auscultation. Normal effort. HEART: NL S1/S2, regular, no murmur ABDOMEN: BS+, soft, nontender, no mass, no bruits EXTREMITIES: No cyanosis. BILATERAL LEG LYMPHEDEMA, FISSURING OF SKIN RIGHT DORSAL FOOT, LEFT POSTEROLATERAL LEG, ERYTHEMA BILATERAL LEGS, LEFT > RIGHT. NEUROLOGIC: CN intact and symmetric to inspection. MUSCULOSKELETAL: Tone and strength symmetric. PSYCH: Alert. Oriented to person, place, and time. Objective Data Vital Signs Vital Signs: Vital Signs - 24 hr 02/20/20 14:00 02/20/20 14:09 02/20/20 14:20 Temperature 98.4 F Pulse Rate 85 69 72 Respiratory Rate 18 20 20 Blood Pressure 151/61 H Pulse Oximetry 100 02/20/20 19:39 02/20/20 19:51 02/20/20 20:20 Temperature 97.8 F Pulse Rate 65 67 50 L Respiratory Rate 16 18 22 H Blood Pressure 145/45 H Pulse Oximetry 99 100 02/20/20 20:45 02/21/20 02:07 02/21/20 02:15 Temperature Pulse Rate 73 73 70 Respiratory Rate 20 20 Blood Pressure Pulse Oximetry 02/21/20 04:00 02/21/20 09:30 02/21/20 10:20 Temperature 98.5 F Pulse Rate 48 L 65 64 Respiratory Rate 22 H 20 Blood Pressure 164/63 H Pulse Oximetry 100 98 Intake/Output Intake/Output: Intake & Output 02/18/20 02/19/20 02/20/20 02/21/20 23:59 23:59 23:59 23:59 Intake Total 1720 440 Balance 1720 440 Meds/Results Medications: Active Medications Generic Name Dose Route Start Last Admin Trade Name Freq PRN Reason Stop Dose Admin Acetaminophen 650 mg 02/19/20 15:40 02/21/20 09:27 Tylenol Tabl
[2020-02-21] MEDS: OLMESARTAN MEDOXOMIL 20 MG TABLET 40 MG PO (13:21)
--- NOTE | 2020-02-21 16:53 | PCRCNOTE ---
Window of time for administration has passed. See next scheduled administration.
[2020-02-22] VITALS (15 sets, daily range): BP systolic 125–128; BP diastolic 48–81; PULSE 60–76; RESP 18–20; TEMP 36.3–37.1; O2SAT 99–100
[2020-02-22] MEDS: ACETAMINOPHEN 325 MG TABLET 650 MG PO ×3 (01:18→16:26)
[2020-02-22] MEDS: ALBUTEROL SULFATE NEB 2.5 MG/0.5 ML INH 5 MG INHALATION ×4 (02:45→21:24)
[2020-02-22] MEDS: IPRATROPIUM BR 0.02% INH SOLN 0.5 MG/2.5 ML VIAL INHALATION ×4 (02:45→21:24)
[2020-02-22 05:51] LABS: Hematocrit 34.2 % (42.0-52.0); Hemoglobin 10.5 g/dL (14.0-18.0); Mean Corpuscular HGB Conc 30.7 g/dl (32-36); Mean Corpuscular Hemoglobin 27.9 pg (26-34); Mean Platelet Volume 9.6 fl (7.4-10.4); Platelet Count Result 214 k/mm3 (150-375); Red Blood Count 3.76 M/mm3 (4.6-6.20); Red Cell Distribution Width 13.2 % (11.5-14.5); White Blood Count 7.4 K/mm3 (4.5-10.0)
[2020-02-22 06:43] LABS: Anion Gap 7.99999 mmol/L (8-16); Blood Urea Nitrogen 14 mg/dL (9-20); CRP 3.7 mg/dL (<1.0); Calcium 8.1 mg/dL (8.4-10.2); Carbon Dioxide > 40 mmol/L (22-30); Chloride 87 mmol/L (98-107); Estimated CRCL calculation 103 ml/min; Estimated Glomerular Filt Rate > 60; Glucose 103 mg/dL (75-110); Sodium 135 mmol/L (137-145)
[2020-02-22 07:00] LABS: Potassium 3.5 mmol/L (3.4-5.0)
[2020-02-22] MEDS: OLMESARTAN MEDOXOMIL 20 MG TABLET 40 MG PO (08:46)
[2020-02-22] MEDS: ASPIRIN 81 MG ENTERIC TABLET PO (08:46)
[2020-02-22] MEDS: METOPROLOL SUCCINATE EXT REL 50 MG TABCR PO ×2 (08:46→20:19)
[2020-02-22] MEDS: CHLORTHALIDONE 25 MG TABLET PO (08:46)
[2020-02-22] MEDS: SIMVASTATIN 10 MG TABLET PO (08:46)
[2020-02-22] MEDS: FUROSEMIDE 40 MG TABLET PO (08:46)
[2020-02-22] MEDS: TOLNAFTATE 1% POWDER 45 GM BTL 1 APPLIC TOPICAL (08:47)
[2020-02-22] MEDS: EUCERIN CREAM 120 GM JAR 1 APPLIC TOPICAL (08:47)
[2020-02-22] MEDS: ENOXAPARIN 40 MG/0.4 ML SYRINGE SUB-Q ×2 (08:47→20:18)
[2020-02-22] MEDS: FLUTICASONE/SALMETEROL 115-21 MCG INHALER 1 PUFF 2 PUFF INHALATION ×3 (10:04→21:24)
--- NOTE | 2020-02-22 15:40 | P.PNIM_ITS ---
Progress Note: A&P Assessment and Plan (1) Cellulitis of left leg: Code(s): L03.116 - Cellulitis of left lower limb Status: Acute Assessment and Plan: * Clinically improving. * WBC remaining normal. * Continue cefazoline day 3 (2) Chronic wound of extremity: Status: Acute Assessment and Plan: * Source of entry for cellulitis * Follow with wound care and HH as outpatient * Continue current wound care (3) Lymphedema: Code(s): I89.0 - Lymphedema, not elsewhere classified Status: Acute Assessment and Plan: * Renders resolution of wound issues improbable * Consider leg pumps if wounds heal * informatics spec consulted * Continue topical care. * PT/OT (4) Chronic respiratory failure with hypoxia and hypercapnia: Code(s): J96.11 - Chronic respiratory failure with hypoxia; J96.12 - Chronic respiratory failure with hypercapnia Status: Acute Assessment and Plan: * Related to COPD, AUBREY, and obesity-hypoventilation syndrome * Stable on 3L (5) Diastolic CHF: Qualifiers: Heart failure chronicity: chronic Qualified Code(s): I50.32 - Chronic diastolic (congestive) heart failure Code(s): I50.30 - Unspecified diastolic (congestive) heart failure Status: Acute Assessment and Plan: * Clinically stable * Continue Lasix (6) Mild obstructive sleep apnea: Code(s): G47.33 - Obstructive sleep apnea (adult) (pediatric) Status: Acute Assessment and Plan: * Stable. Continue home bipap (7) COPD (chronic obstructive pulmonary disease): Qualifiers: COPD type: unspecified COPD Qualified Code(s): J44.9 - Chronic obstructive pulmonary disease, unspecified Code(s): J44.9 - Chronic obstructive pulmonary disease, unspecified Status: Acute Assessment and Plan: * Clinically stable (8) Essential hypertension: Code(s): I10 - Essential (primary) hypertension Status: Acute Assessment and Plan: * 02/19 171/100 in AM * 02/19 ordered chlorthalidone * 02/20 BP trending down, so continue to monitor * 02/21: BP much better controlled (9) DVT prophylaxis: Code(s): Z29.9 - Encounter for prophylactic measures, unspecified Status: Acute Assessment and Plan: Aneudy Subjective Date/time seen: 02/22/20 15:40 Interval history: 69yo male with chronc lymphedema here for LE cellulitls. Less pain in the legs especially the left heel. Able to walk to the BR without much leg or feet pain. Eating well. No n/v. Nml BMs - no diarrhea. Exam Narrative: Exam Narrative: AF 98.8 128/79 65 20 99% Gen - NARD sittin gup in the anitha Chest - distant but clear BS CV - RRR S1/S2 Abd - soft, obese, NT Ext - bilateal LE lymphedema. Both legs are covered with thick white cream over thick scale. open linear ulcer noted right mid baeza. Left LE whitish plaques possibly blistering Psych - nml mood and affect Skin - as above Objective Data Vital Signs Vital Signs: Vital Signs - 24 hr 02/21/20 20:12 02/21/20 20:13 02/21/20 20:25 Temperature Pulse Rate 54 L 59 L Respiratory Rate 20 20 Blood Pressure Pulse Oximetry 100 02/21/20 20:58 02/21/20 21:20 02/22/20 02:46 Temperature 98.6 F Pulse Rate 68 56 L 60
--- NOTE | 2020-02-22 15:40 | PM.IMPN ---
Progress Note: A&P Assessment and Plan (1) Cellulitis of left leg: Code(s): L03.116 - Cellulitis of left lower limb Status: Acute Assessment and Plan: Clinically improving. WBC remaining normal. Continue cefazoline day 3 (2) Chronic wound of extremity: Status: Acute Assessment and Plan: Source of entry for cellulitis Follow with wound care and HH as outpatient Continue current wound care (3) Lymphedema: Code(s): I89.0 - Lymphedema, not elsewhere classified Status: Acute Assessment and Plan: Renders resolution of wound issues improbable Consider leg pumps if wounds heal funds transfer clerk consulted Continue topical care. PT/OT (4) Chronic respiratory failure with hypoxia and hypercapnia: Code(s): J96.11 - Chronic respiratory failure with hypoxia; J96.12 - Chronic respiratory failure with hypercapnia Status: Acute Assessment and Plan: Related to COPD, AUBREY, and obesity-hypoventilation syndrome Stable on 3L (5) Diastolic CHF: Qualifiers: Heart failure chronicity: chronic Qualified Code(s): I50.32 - Chronic diastolic (congestive) heart failure Code(s): I50.30 - Unspecified diastolic (congestive) heart failure Status: Acute Assessment and Plan: Clinically stable Continue Lasix (6) Mild obstructive sleep apnea: Code(s): G47.33 - Obstructive sleep apnea (adult) (pediatric) Status: Acute Assessment and Plan: Stable. Continue home bipap (7) COPD (chronic obstructive pulmonary disease): Qualifiers: COPD type: unspecified COPD Qualified Code(s): J44.9 - Chronic obstructive pulmonary disease, unspecified Code(s): J44.9 - Chronic obstructive pulmonary disease, unspecified Status: Acute Assessment and Plan: Clinically stable (8) Essential hypertension: Code(s): I10 - Essential (primary) hypertension Status: Acute Assessment and Plan: 02/19 171/100 in AM 02/19 ordered chlorthalidone 02/20 BP trending down, so continue to monitor 02/21: BP much better controlled (9) DVT prophylaxis: Code(s): Z29.9 - Encounter for prophylactic measures, unspecified Status: Acute Assessment and Plan: Lovenox Subjective Date/time seen: 02/22/20 15:40 Interval history: 69yo male with chronc lymphedema here for LE cellulitls. Less pain in the legs especially the left heel. Able to walk to the BR without much leg or feet pain. Eating well. No n/v. Nml BMs - no diarrhea. Exam Narrative: Exam Narrative: AF 98.8 128/79 65 20 99% Gen - NARD sittin gup in the anitha Chest - distant but clear BS CV - RRR S1/S2 Abd - soft, obese, NT Ext - bilateal LE lymphedema. Both legs are covered with thick white cream over thick scale. open linear ulcer noted right mid baeza. Left LE whitish plaques possibly blistering Psych - nml mood and affect Skin - as above Objective Data Vital Signs Vital Signs: Vital Signs - 24 hr 02/21/20 20:12 02/21/20 20:13 02/21/20 20:25 Temperature Pulse Rate 54 L 59 L Respiratory Rate 20 20 Blood Pressure Pulse Oximetry 100 02/21/20 20:58 02/21/20 21:20 02/22/20 02:46 Temperature 98.6 F Pulse Rate 68 56 L 60 Respiratory Rate 18 20 Blood Pressure 118/81 Pulse Oximetry 100 02/22/20 03:00 02/22/20 06:00 02/22/20 08:46 Temperature 97.4 F L Pulse Rate 63 60 60 Respiratory Rate 20 18 Blood Pressure 125/81 Pulse Oximetry 100 02/22/20 10:00 02/22/20 10:09 02/22/20 10:20 Temperature Pulse Rate 63 68 65 Respiratory Rate 20 20 20 Blood Pressure Pulse Oximetry 100 02/22/20 14:28 02/22/20 14:45 02/22/20 14:55 Temperature 98.8 F Pulse Rate 72 67 65 Respiratory Rate 18 20 20 Blood Pressure 128/79 Pulse Oximetry 99 Intake/Output Intake/Output: Intake & Output 02/19/20 02/20/20 02/21/20 02/22/20 23:59 23:59 2
[2020-02-23] VITALS (14 sets, daily range): BP systolic 112–148; BP diastolic 52–71; PULSE 53–125; RESP 16–20; TEMP 36.3–37.1; O2SAT 84–100
[2020-02-23] MEDS: ALBUTEROL SULFATE NEB 2.5 MG/0.5 ML INH 5 MG INHALATION ×4 (02:56→20:53)
[2020-02-23] MEDS: IPRATROPIUM BR 0.02% INH SOLN 0.5 MG/2.5 ML VIAL INHALATION ×4 (02:56→20:54)
[2020-02-23] MEDS: ACETAMINOPHEN 325 MG TABLET 650 MG PO ×2 (04:42→17:36)
[2020-02-23 06:00] LABS: Anion Gap 8.99999 mmol/L (8-16); Blood Urea Nitrogen 20 mg/dL (9-20); CRP 2.6 mg/dL (<1.0); Calcium 8.2 mg/dL (8.4-10.2); Carbon Dioxide > 40 mmol/L (22-30); Chloride 85 mmol/L (98-107); Estimated CRCL calculation 103 ml/min; Estimated Glomerular Filt Rate > 60; Glucose 110 mg/dL (75-110); Sodium 134 mmol/L (137-145)
[2020-02-23] MEDS: FLUTICASONE/SALMETEROL 115-21 MCG INHALER 1 PUFF 2 PUFF INHALATION ×2 (08:15→20:53)
[2020-02-23] MEDS: ASPIRIN 81 MG ENTERIC TABLET PO (08:40)
[2020-02-23] MEDS: ENOXAPARIN 40 MG/0.4 ML SYRINGE SUB-Q ×2 (08:40→21:17)
[2020-02-23] MEDS: FUROSEMIDE 40 MG TABLET PO (08:40)
[2020-02-23] MEDS: OLMESARTAN MEDOXOMIL 20 MG TABLET 40 MG PO (08:40)
[2020-02-23] MEDS: SIMVASTATIN 10 MG TABLET PO (08:40)
[2020-02-23] MEDS: CHLORTHALIDONE 25 MG TABLET PO (08:40)
[2020-02-23] MEDS: TOLNAFTATE 1% POWDER 45 GM BTL 1 APPLIC TOPICAL (08:41)
[2020-02-23] MEDS: EUCERIN CREAM 120 GM JAR 1 APPLIC TOPICAL (08:41)
[2020-02-23] MEDS: METOPROLOL SUCCINATE EXT REL 50 MG TABCR PO ×2 (08:42→21:17)
--- NOTE | 2020-02-23 12:12 | P.PNIM_ITS ---
Progress Note: A&P Assessment and Plan (1) Cellulitis of left leg: Code(s): L03.116 - Cellulitis of left lower limb Status: Acute Assessment and Plan: * Clinically improving. * WBC remaining normal. * Continue cefazoline day 4 (2) Chronic wound of extremity: Status: Acute Assessment and Plan: * Source of entry for cellulitis * Follow with wound care and HH as outpatient * Continue current wound care (3) Lymphedema: Code(s): I89.0 - Lymphedema, not elsewhere classified Status: Acute Assessment and Plan: * Renders resolution of wound issues improbable * Consider leg pumps if wounds heal * general counselor consulted * Continue topical care. * PT/OT (4) Chronic respiratory failure with hypoxia and hypercapnia: Code(s): J96.11 - Chronic respiratory failure with hypoxia; J96.12 - Chronic respiratory failure with hypercapnia Status: Acute Assessment and Plan: * Related to COPD, AUBREY, and obesity-hypoventilation syndrome * Stable on 3L (5) Diastolic CHF: Qualifiers: Heart failure chronicity: chronic Qualified Code(s): I50.32 - Chronic diastolic (congestive) heart failure Code(s): I50.30 - Unspecified diastolic (congestive) heart failure Status: Acute Assessment and Plan: * Clinically stable * Continue Lasix (6) Mild obstructive sleep apnea: Code(s): G47.33 - Obstructive sleep apnea (adult) (pediatric) Status: Acute Assessment and Plan: * Stable. Continue home bipap (7) COPD (chronic obstructive pulmonary disease): Qualifiers: COPD type: unspecified COPD Qualified Code(s): J44.9 - Chronic obstructive pulmonary disease, unspecified Code(s): J44.9 - Chronic obstructive pulmonary disease, unspecified Status: Acute Assessment and Plan: * Clinically stable (8) Essential hypertension: Code(s): I10 - Essential (primary) hypertension Status: Acute Assessment and Plan: * 02/19 171/100 in AM * 02/19 ordered chlorthalidone * 02/20 BP trending down, so continue to monitor * 02/22: Controlled now. (9) DVT prophylaxis: Code(s): Z29.9 - Encounter for prophylactic measures, unspecified Status: Acute Assessment and Plan: Aneudy Subjective Date/time seen: No new complains today other than lower extremity pain, he si able to ambulate. 02/23/20 12:12 Review of Systems Review of Systems: All systems reviewed & are unremarkable except as noted in HPI and below Exam Const: General: comfortable and no acute distress Neck: Neck: supple and no JVD Resp: Effort & Inspection: normal respiratory effort Auscultation: clear to auscultation bilaterally and diminished lung sounds Cardio: Rate: regular rate Rhythm: regular rhythm GI: Auscultation: normal bowel sounds Neuro: Speech: normal speech Motor exam (neuro): 5/5 motor strength present throughout and Normal motor muscle tone present throughout Extrem: Other: Bilateral lymphedema with erythema and cellulitis on the left baeza and in the dorsum of the right foot. Dry linear ulcer noted on the right leg without discharge. Psych: Affect: normal affect Objective Data Vital Signs Vital Signs: Vital Signs - 24 hr 02/22/20 14:28 02/22/20 14:45
--- NOTE | 2020-02-23 12:12 | PM.IMPN ---
Progress Note: A&P Assessment and Plan (1) Cellulitis of left leg: Code(s): L03.116 - Cellulitis of left lower limb Status: Acute Assessment and Plan: Clinically improving. WBC remaining normal. 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 PT/OT (4) Chronic respiratory failure with hypoxia and hypercapnia: Code(s): J96.11 - Chronic respiratory failure with hypoxia; J96.12 - Chronic respiratory failure with hypercapnia Status: Acute Assessment and Plan: Related to COPD, AUBREY, and obesity-hypoventilation syndrome Stable on 3L (5) Diastolic CHF: Qualifiers: Heart failure chronicity: chronic Qualified Code(s): I50.32 - Chronic diastolic (congestive) heart failure Code(s): I50.30 - Unspecified diastolic (congestive) heart failure Status: Acute Assessment and Plan: Clinically stable Continue Lasix (6) Mild obstructive sleep apnea: Code(s): G47.33 - Obstructive sleep apnea (adult) (pediatric) Status: Acute Assessment and Plan: Stable. Continue home bipap (7) COPD (chronic obstructive pulmonary disease): Qualifiers: COPD type: unspecified COPD Qualified Code(s): J44.9 - Chronic obstructive pulmonary disease, unspecified Code(s): J44.9 - Chronic obstructive pulmonary disease, unspecified Status: Acute Assessment and Plan: Clinically stable (8) Essential hypertension: Code(s): I10 - Essential (primary) hypertension Status: Acute Assessment and Plan: 02/19 171/100 in AM 02/19 ordered chlorthalidone 02/20 BP trending down, so continue to monitor 02/22: Controlled now. (9) DVT prophylaxis: Code(s): Z29.9 - Encounter for prophylactic measures, unspecified Status: Acute Assessment and Plan: Lovenox Subjective Date/time seen: No new complains today other than lower extremity pain, he si able to ambulate. 02/23/20 12:12 Review of Systems Review of Systems: All systems reviewed & are unremarkable except as noted in HPI and below Exam Const: General: comfortable and no acute distress Neck: Neck: supple and no JVD Resp: Effort & Inspection: normal respiratory effort Auscultation: clear to auscultation bilaterally and diminished lung sounds Cardio: Rate: regular rate Rhythm: regular rhythm GI: Auscultation: normal bowel sounds Neuro: Speech: normal speech Motor exam (neuro): 5/5 motor strength present throughout and Normal motor muscle tone present throughout Extrem: Other: Bilateral lymphedema with erythema and cellulitis on the left baeza and in the dorsum of the right foot. Dry linear ulcer noted on the right leg without discharge. Psych: Affect: normal affect Objective Data Vital Signs Vital Signs: Vital Signs - 24 hr 02/22/20 14:28 02/22/20 14:45 02/22/20 14:55 Temperature 98.8 F Pulse Rate 72 67 65 Respiratory Rate 18 20 20 Blood Pressure 128/79 Pulse Oximetry 99 02/22/20 20:19 02/22/20 21:24 02/22/20 21:25 Temperature Pulse Rate 65 66 Respiratory Rate 20 Blood Pressure Pulse Oximetry 100 02/22/20 21:28 02/22/20 21:35 02/23/20 02:56 Temperature 98.1 F Pulse Rate 76 71 68 Respiratory Rate 20 20 Blood Pressure 128/48 L Pulse Oximetry 100 02/23/20 03:07 02/23/20 05:55 02/23/20 08:13 Temperature 98.7 F Pulse Rate 65 60 69 Respiratory Rate 16 20 Blood Pressure 130/71 Pulse Oximetry 100 02/23/20 08:15 02/23/20 08:21 09
[2020-02-24] VITALS (7 sets, daily range): BP systolic 116; BP diastolic 59; PULSE 55–88; RESP 18–20; TEMP 36.3; O2SAT 98–99
[2020-02-24] MEDS: ACETAMINOPHEN 325 MG TABLET 650 MG PO ×2 (01:02→11:13)
[2020-02-24] MEDS: IPRATROPIUM BR 0.02% INH SOLN 0.5 MG/2.5 ML VIAL INHALATION ×2 (02:37→10:09)
[2020-02-24] MEDS: ALBUTEROL SULFATE NEB 2.5 MG/0.5 ML INH 5 MG INHALATION ×2 (02:37→10:08)
[2020-02-24 05:32] LABS: Basophils Absolute Auto 0.1 K/mm3 (0.0-0.1); Basophils Percent Auto 1.2 % (0.2-1.2); Eosinophils Absolute Auto 0.3 K/mm3 (0-0.3); Eosinophils Percent Auto 4.7 % (0-4.4); Hematocrit 36.7 % (42.0-52.0); Hemoglobin 11.1 g/dL (14.0-18.0); Immature Granulocyte Absolute 0.01 K/mm3 (0.00-0.031); Immature Granulocyte Percent A 0.1 % (0-0.5); Lymphocytes Absolute Auto 2.55 K/mm3 (0.9-3.2); Lymphocytes Percent Auto 35.1 % (18.3-44.2); Mean Corpuscular HGB Conc 30.2 g/dl (32-36); Mean Corpuscular Hemoglobin 27.8 pg (26-34); Monocytes Percent Auto 14.2 % (2.6-8.5); Neutrophils Absolute Auto 3.2 K/mm3 (1.3-6.7); Neutrophils Percent Auto 44.7 % (45.5-73.1); Platelet Count Result 249 k/mm3 (150-375); Red Blood Count 3.99 M/mm3 (4.6-6.20); Red Cell Distribution Width 13.2 % (11.5-14.5); White Blood Count 7.3 K/mm3 (4.5-10.0)
[2020-02-24 05:56] LABS: Anion Gap 5.99999 mmol/L (8-16); Blood Urea Nitrogen 22 mg/dL (9-20); Calcium 8.2 mg/dL (8.4-10.2); Carbon Dioxide > 40 mmol/L (22-30); Chloride 85 mmol/L (98-107); Estimated CRCL calculation 116 ml/min; Estimated Glomerular Filt Rate > 60; Glucose 111 mg/dL (75-110); Potassium 3.9 mmol/L (3.4-5.0); Sodium 131 mmol/L (137-145)
[2020-02-24] MEDS: SIMVASTATIN 10 MG TABLET PO (08:31)
[2020-02-24] MEDS: CHLORTHALIDONE 25 MG TABLET PO (08:32)
[2020-02-24] MEDS: ENOXAPARIN 40 MG/0.4 ML SYRINGE SUB-Q (08:32)
[2020-02-24] MEDS: FUROSEMIDE 40 MG TABLET PO (08:32)
[2020-02-24] MEDS: METOPROLOL SUCCINATE EXT REL 50 MG TABCR PO (08:32)
[2020-02-24] MEDS: ASPIRIN 81 MG ENTERIC TABLET PO (08:32)
[2020-02-24] MEDS: OLMESARTAN MEDOXOMIL 20 MG TABLET 40 MG PO (08:32)
[2020-02-24] MEDS: EUCERIN CREAM 120 GM JAR 1 APPLIC TOPICAL (08:33)
[2020-02-24] MEDS: TOLNAFTATE 1% POWDER 45 GM BTL 1 APPLIC TOPICAL (08:35)
--- NOTE | 2020-02-24 17:53 | PM.DS ---
DS: Admitting Diagnosis Admitting Diagnosis Admitting Diagnosis: inability to care for himself/chronic leg wounds DS: Discharge Diagnosis Discharge Diagnosis (1) Lymphedema: Code(s): I89.0 - Lymphedema, not elsewhere classified Status: Acute (2) Chronic wound of extremity: Status: Acute (3) Physical deconditioning: Code(s): R53.81 - Other malaise Status: Acute (4) Essential hypertension: Code(s): I10 - Essential (primary) hypertension Status: Acute (5) Neuropathy: Code(s): G62.9 - Polyneuropathy, unspecified Status: Chronic (6) Cellulitis of left leg: Code(s): L03.116 - Cellulitis of left lower limb Status: Acute DS: Summary Hospital Course Reason for hospitalization: Worsening leg wounds, cellulitis Hospital Course: 69 yo with history of lymphedema and non adherence to medical treatment presented to the hospital with increasing pain and edema of both lower extremities but mainly the left. He was found to have maggots on his wounds and also cellulitis, he states that he is unable to take care of himself at home. He was seen by wound care, started on cefazolin and lasix plus chlorthalidone in order to help with the lymphedema, he responded well to this therapy with the exception that he developed hyponatremia with the thiazide diuretic which was for instance stopped. He was discharged with home health for wound care, keflex to complete a total of 7 days of antibiotics and his lasix was increased to 40 mg BID. He needs to follow up with his PCP to monitor his electrolytes now that he is on a higher dose of lasix, he verbalized understanding. Status at Discharge Overall status at discharge: patient is back to baseline Time Spent with Patient Time attestation: Total time spent providing and/or coordinating discharge services: Time spent: Greater than 30 minutes Exam Const: General: comfortable and no acute distress Neck: Neck: supple and no JVD Resp: Effort & Inspection: normal respiratory effort Auscultation: clear to auscultation bilaterally and diminished lung sounds Cardio: Rate: regular rate Rhythm: regular rhythm GI: Auscultation: normal bowel sounds Neuro: Speech: normal speech Motor exam (neuro): 5/5 motor strength present throughout and Normal motor muscle tone present throughout Extrem: Other: Bilateral lymphedema with erythema and cellulitis on the left baeza and in the dorsum of the right foot. Dry linear ulcer noted on the right leg without discharge. Psych: Affect: normal affect DS: Data Data Completed and Pending Labs on day of discharge: Labs from last 24 hours 02/24/20 02/24/20 04:58 04:58 WBC 7.3 RBC 3.99 L Hgb 11.1 L Hct 36.7 L MCV 92.0 MCH 27.8 MCHC 30.2 L RDW 13.2 Plt Count 249 MPV 10.0 Immature Gran % (Auto) 0.1 Neut % (Auto) 44.7 L Lymph % (Auto) 35.1 [place] % (Auto) 14.2 H Eos % (Auto) 4.7 H Baso % (Auto) 1.2 Lymph # (Auto) 2.55 [place] # (Auto) 1.0 H Eos # (Auto) 0.3 Baso # (Auto) 0.1 Abs Immat Gran (auto) 0.01 Absolute Neuts (auto) 3.2 Absolute Nucleated RBC 0.0 Nucleated RBC % 0.0 Sodium 131 L Potassium 3.9 Chloride 85 L Carbon Dioxide > 40 H Anion Gap 5.05034 L BUN 22 H Creatinine 0.70 Estim Creat Clear Calc 116 Estimated GFR > 60 Glucose 111 H Calcium 8.2 L Discharge Plan Discharge Attending physician on discharge: Abraham Bowling Discharging Clinician: Abraham Bowling Patient Disposition: Home Health Service Activity: as tolerated Diet: heart healthy Wound Care Instructions: change dressing daily Discharge Instructions: Per Care Coordination, pt to discharge with [facility] ( ). Please fax discharge instructions and medication sheets to . Patient Instructions: Antibiotic Form, COPD (Chronic Obstructive Pulmonary Disease) (DC), Chron
== END 2020-02-24 12:45 | disposition home health service (06) | DRG 593 ==
LOC: ANHED 15:44 → ANH3MED 16:49
PROVIDERS: Hospitalist; Internal Medicine; Admitting Provider Family Medicine; Emergency Provider Emergency Medicine; PCP Emergency Medicine; Visit Provider Internal Medicine
DX: L97.819 Non-pressure chronic ulcer of other part of right lower leg with unspecified severity (principal); L03.116 Cellulitis of left lower limb; I50.32 Chronic diastolic (congestive) heart failure; Z68.42 Body mass index [BMI] 45.0-49.9, adult; J96.11 Chronic respiratory failure with hypoxia; J96.12 Chronic respiratory failure with hypercapnia; E87.1 Hypo-osmolality and hyponatremia; I89.0 Lymphedema, not elsewhere classified; T50.2X5A Adverse effect of carbonic-anhydrase inhibitors, benzothiadiazides and other diuretics, initial encounter; I11.0 Hypertensive heart disease with heart failure; R53.81 Other malaise; G62.9 Polyneuropathy, unspecified; N40.0 Benign prostatic hyperplasia without lower urinary tract symptoms; J44.9 Chronic obstructive pulmonary disease, unspecified; I25.10 Atherosclerotic heart disease of native coronary artery without angina pectoris; E78.5 Hyperlipidemia, unspecified; G47.33 Obstructive sleep apnea (adult) (pediatric); Z77.098 Contact with and (suspected) exposure to other hazardous, chiefly nonmedicinal, chemicals; Z87.891 Personal history of nicotine dependence; Z95.5 Presence of coronary angioplasty implant and graft; E66.01 Morbid (severe) obesity due to excess calories
CPT/HCPCS: 36415; 36600; 71046; 80048; 82607; 82746; 82805; 83540; 83550; 83605; 83615; 83880; 84443; 85025; 85027; 85046; 86140; 94640; 96372; 96375; 96376; 97161; 97165; 99213; 99285; A9270; G0378; G0463; J0360; J0690; J1650; J7512